=== PATIENT | female | born 1940 | race Caucasian/White ===

== ENCOUNTER 2017-06-18 05:34 | Observation (INO) | payer BC, MEDICARE ==
[2017-06-18] MEDS ORDERED: Nitroglycerin 2% Ointment 1 INCH/1 GM Packet ONE (07:16)
[2017-06-18 07:46] LABS: #Basophils 0.1 thou/uL (0.0-0.2); #Eosinphils 0.2 thou/uL (0.0-0.7); #Lymphocytes 1.3 thou/uL (1.20-3.40); #Neutrophils 6.8 thou/uL (1.40-6.50); %Basophils 0.8 % (0.0-1.0); %Eosinophils 1.9 % (0.0-10.0); %Lymphocytes 13.8 % (21.0-51.0); %Monocytes 10.4 % (0.0-10.0); %Neutrophils 73.2 % (42.0-75.0); Hemoglobin 12.6 g/dL (12.0-16.0); Mean Corpuscular HGB CONC 32.5 g/dL (32.0-36.0); Mean Corpuscular Hemoglobin 31.2 pg (27.0-31.0); Mean Corpuscular Volume 95.8 fl (81.0-99.0); Mean Platelet Volume 6.8 fL (7.4-10.4); Platelet Count 346 thou/uL (130-400); RBC Distribution Width 12.3 % (11.5-14.5); Red Blood Cell (RBC) Count 4.03 mill/uL (4.20-5.40); White Blood Cell (WBC) Count 9.2 thou/uL (4.8-10.8)
--- NOTE | 2017-06-18 07:49 | RAD ---
UPRIGHT PORTABLE CHEST 1 VIEW: Date: 06/18/17 HISTORY: 77-year-old female with cough. FINDINGS: Monitor leads overlie the chest. Bilateral pleural effusions, greater on the right side. Cardiomegaly . Bilateral vascular congestion. Findings certainly could be consistent with some degree of congestiv e heart failure. IMPRESSION: Bilateral vascular congestion with bilateral pleural effusions, greater on the right side, and cardio megaly, evidence for congestive heart failure. Treatment and short-term follow-up suggested. POS: LENNIE
[2017-06-18 08:07] LABS: ALT (SGPT) 27 U/L (8-55); AST (SGOT) 33 U/L (5-34); Albumin 3.9 g/dL (3.4-4.8); Alkaline Phosphatase 102 U/L (40-150); Anion Gap 13 mmol/L (10-20); BUN (Urea Nitrogen) 18 mg/dL (9.8-20.1); Bilirubin, Total 1.2 mg/dL (0.2-1.2); CK (CPK) 109 U/L (29-168); Calc. Creatinine Clearance 0 mL/min (70-130); Calcium 9.5 mg/dL (7.8-10.44); Carbon Dioxide 24 mmol/L (23-31); Chloride 108 mmol/L (98-107); Estimated GFR-MDRD 64; Globulin 2.7 g/dL (2.4-3.5); Glucose 92 mg/dL (83-110); Potassium 4.2 mmol/L (3.5-5.1); Protein, Total 6.6 g/dL (6.0-8.3); Sodium 141 mmol/L (136-145)
[2017-06-18 08:11] LABS: CKMB 5.8 ng/mL (0-6.6); Troponin I 0.022 ng/mL (< 0.028)
--- NOTE | 2017-06-18 09:14 | CT ---
CHEST CT ANGIOGRAM AND ABDOMEN CT ANGIOGRAM WITH 3D RENDERING: Date: 06/18/17 HISTORY: 77-year-old female with dyspnea, upper back pain for several weeks, with cough, congestion, and sore throat. FINDINGS: Bilateral pleural effusions, small to moderate, greater on the right side, with some patchy pleural b ased parenchymal changes in the right middle lobe, right lower lobe, and left lower lobe, most eviden ce for subsegmental atelectasis versus some chronic change. There is cardiomegaly. There are some ath erosclerotic ectatic changes of the aorta, but no evidence for focal aneurysm or dissection. No CT ev idence for significant acute pulmonary embolism. There is a moderate sized hiatal hernia. There appea r to be some focal fatty changes in the liver adjacent to the ligamentum teres. Collapsed T7 vertebra l body which has more of an old appearance. IMPRESSION: Some generalized atherosclerotic ectatic changes of the aorta without evidence for focal aneurysm or dissection. No significant CT evidence for acute pulmonary embolism. Bilateral pleural effusions and bilateral pleural based parenchymal changes. Moderate size hiatal hernia. Other findings as above. POS: LENNIE
[2017-06-18 11:11] LABS: Troponin I 0.024 ng/mL (< 0.028)
--- NOTE | 2017-06-18 11:43 | HP ---
PRIMARY CARE PHYSICIAN: Avery Greer M.D. REASON FOR ADMISSION: Hypertensive urgency, new onset congestive heart failure. HISTORY OF PRESENT ILLNESS: A 77-year-old female who came to emergency room with multiple complaints . She reports that about 3 weeks ago when she suddenly changed her position on the right side, she w as having upper back pain and which is going on for the last 2-3 weeks and that pain is getting worse whenever she changed positions and whenever she bends downward. Her intensity of pain is about 3/10 . She was trying some [id number] pain medication without any significant relief. For the last 1 week, the patient was experiencing upper respiratory infection including cough, nasal congestion, sore throat. For the last 2 weeks, she has dyspnea on exertion and she gets more fatigued. For the last 1 week, she noticed increasing bilateral lower extremity swelling. For the last 3 days, she was experiencing puffiness of eyelid as well as abdominal bloating. She was also feeling swelling over her hand. She denies any chest pain. She denies any palpitation, dizziness, or syncope. She denies any orthopnea or PND. She denies any fever or chills. She denies any hemoptysis. She denies any s putum production. She denies any constipation, diarrhea, melena, or hematochezia. With these symptoms, she presented to emergency room. She was initially hypertensive with blood pres sure 202/91. Routine blood tests showed elevated BNP. Her D-dimer was elevated and that is why CT d issection protocol was done which was negative for PE or dissection, but it did show findings suggest shandra of congestive heart failure. In the emergency room, patient was given aspirin, nitropatch. After that, her blood pressure improve d. We are admitting this patient for further evaluation and treatment. PAST MEDICAL HISTORY: Hypertension. PAST SURGICAL HISTORY: Tonsillectomy, hysterectomy. PAST PSYCHIATRIC HISTORY: Reviewed and negative. SOCIAL HISTORY: Patient is and lives at home with family. No history of tobacco, alcohol, o r illicit drug abuse. FAMILY HISTORY: No strong family history of premature coronary artery disease, stroke, or cancer. N o family history of congestive heart failure. ALLERGIES: SULFA DRUGS. CURRENT HOME MEDICATIONS: Altace 10 mg p.o. daily, vitamin B12 one tablet p.o. daily. REVIEW OF SYSTEMS: The following complete review of systems was negative, unless otherwise mentioned in the HPI or below: Constitutional: Weight loss or gain, ability to conduct usual activities. Skin: Rash, itching. Eyes: Double vision, pain. ENT/Mouth: Nose bleeding, neck stiffness, pain, tenderness. Cardiovascular: Palpitations, dyspnea on exertion, orthopnea. Respiratory: Shortness of breath, wheezing, cough, hemoptysis, fever or night sweats. Gastrointestinal: Poor appetite, abdominal pain, heartburn, nausea, vomiting, constipation, or diarr hea. Genitourinary: Urgency, frequency, dysuria, nocturia. Musculoskeletal: Pain, swelling. Neurologic/Psychiatric: Anxiety, depression. Allergy/Immunologic: Skin rash, bleeding tendency. Please see my HPI for pertinent positives and negatives. All other review of systems reviewed and ne gative except as mentioned in the HPI. EMERGENCY ROOM COURSE: The patient is given aspirin and nitropatch. PHYSICAL EXAMINATION: VITAL SIGNS: Currently, blood pressure 185/82, pulse 91, respiratory rate 22, temperature 98.6, satu ration 92% on room air, weight 72.03 kg. GENERAL: Patient is currently alert, awake. No obvious acute distress. HEAD: Normocephalic and atraumatic. EYES: Pupils are round and reactive to light. Extraocular muscles are intact. ENT: Oropharynx within normal limits. No pharyngeal erythema, no exudate. Nasal congestion noted. NECK: Supple. No JVD, no thyromegaly, no carotid bruit, no jugular venous distention. LUNGS: Bibasilar reduced air entry, few rales noted. No wheezing, no rhonchi. No accessory muscles of respiration use. CARDIAC: S1 and S2 regular. Soft systolic murmur noted. No gallop, no rub. ABDOMEN: Soft. Bowel sounds present. Nontender, nondistended. No organomegaly, no mass, no suprap ubic tenderness. BACK: Local examination of upper back and lower back is within normal limits. No point tenderness. EXTREMITIES: Upper extremity; passive movement of all joints are normal. Good pulsation. Lower ext remity: bilateral lower extremity pitting edema noted. Good distal pulsation. SKIN: No skin rash. HEMATOLOGICAL: No lymphadenopathy. PSYCHIATRIC: Normal affect. NEUROLOGIC: Nonfocal examination. The patient moves all 4 limbs. Plantar bilateral flexor. SIGNIFICANT LABS: EKG based on my review; incomplete right bundle branch block pattern, left atrial enlargement, nonspecific ST-T changes. Chest x-ray based on my review; bilateral pulmonary vascular congestion with bilateral pleural effusion, more on the right side, cardiomegaly. CT dissection prot ocol negative for any dissection or aneurysm or PE. Hiatal hernia noted. Chronic T7 compression fra cture noted. CBC: WBC 9.2, hemoglobin 12.6, platelets 346, D-dimer 4.80. BMP: Sodium 141, potassium 4.2, chlori de 108, carbon dioxide 24, anion gap 13, BUN 18, creatinine 0.86, glucose 92, calcium 9.5. LFT: AST 33, ALT 27, alkaline phosphatase 102, albumin 3.9, CK 109, CK-MB 5.8, troponin 0.022. BNP 666.9. ASSESSMENT AND PLAN: 1. New onset congestive heart failure. This patient has dyspnea on exertion, bilateral lower extrem ity pitting edema, elevated BNP, cardiomegaly, and bilateral pleural effusion with pulmonary vascular congestion and dyspnea on exertion as well as elevated BNP, all supportive of congestive heart failu re, most likely this is new onset given lack of previous history. I am suspecting diastolic heart fa ilure from uncontrolled hypertension. At this point, we will obtain echocardiography to look for sys tolic or diastolic dysfunction. If the patient has systolic heart failure, then we will consider doi ng stress test or ischemic evaluation. If this patient has diastolic heart failure, then we will leonardo at underlying problem. We will add beta douglas therapy. We will also treat with Lasix 40 mg IV b.i .d. today and tomorrow. Upon discharge, we will give her p.o. Lasix therapy. Fluid restriction 150 0 mL per day. Dietary education given. We will also rule out cardiac etiology with serial cardiac e nzymes. We will continue the nitropatch q.8 hourly. 2. Hypertension with hypertensive urgency, currently resolved after nitropatch which we will continu e and we will continue to treat with Altace 10 mg daily. We will add Coreg 12.5 mg twice daily and w e will also consider adding Lasix 40 mg IV b.i.d. and we will titrate blood pressure medication as to lerated. 3. Hiatal hernia. Patient will need Pepcid 20 mg twice daily. Nonpharmacological measure for hiata l hernia discussed with the patient. 4. Upper back pain, likely related with T7 compression fracture and muscle spasm. We will add Flexe ril 10 mg t.i.d. p.r.n. and we will use [place]/Tylenol #3 as needed basis for pain control. 5. Elevated D-dimer, but the CT dissection protocol negative for pulmonary embolism. 6. Deep venous thrombosis prophylaxis not needed because we are expecting discharge in 24 hours. 7. Gastrointestinal prophylaxis, Pepcid 20 mg p.o. b.i.d. 8. Code status: The patient is FULL CODE. The patient's daughter is surrogate decision maker. Disposition and plan based on clinical course. We are expecting patient's stay in hospital 24-48 carlton rs. Plan of care discussed with the patient and family member at bedside in the emergency room.
[2017-06-18] MEDS ORDERED: Diabetic Tussin 200 MG/10 ML UDCUP PO PRN (12:01)
[2017-06-18] MEDS ORDERED: Chloraseptic Spray 180 ml Bottle PO PRN (12:01)
[2017-06-18] MEDS ORDERED: Acetaminophen 325 MG TAB PO PRN (12:01)
[2017-06-18] MEDS ORDERED: Sodium Chloride 0.65% Nasal 44 ML BOT EA NARE PRN (12:01)
[2017-06-18] MEDS ORDERED: Ondansetron ODT 4 MG TAB PO PRN (12:01)
[2017-06-18] MEDS ORDERED: Senokot 8.6 MG TAB PO PRN (12:01)
[2017-06-18] MEDS ORDERED: Nitroglycerin 0.4 MG TAB (25 Tab Bottle) SL PRN (12:01)
[2017-06-18] MEDS ORDERED: Loratadine 10 MG TAB PO PRN (12:01)
[2017-06-18] MEDS ORDERED: hydrALAZINE 20 MG/ML VIAL SLOW IVP PRN (12:01)
[2017-06-18] MEDS ORDERED: Artificial Tears 18 DROP/0.9 ML EA EYE PRN (12:01)
[2017-06-18] MEDS ORDERED: Mag-Al 1200 mg/1200 mg/30 ML UDCUP PO PRN (12:01)
[2017-06-18] MEDS ORDERED: Ondansetron HCl/PF 4 MG/2 ML Vial IVP PRN (12:01)
[2017-06-18] MEDS ORDERED: Eucerin (Mineral Oil/Petrolatum,White) 30 gm Jar TOP PRN (12:01)
[2017-06-18] MEDS ORDERED: HYDROcodone/Acetaminophen 5/325 mg Tablet PO PRN (12:01)
[2017-06-18] MEDS ORDERED: Milk Of Magnesia 30 ML UDCUP PO PRN (12:01)
[2017-06-18] MEDS ORDERED: Zolpidem Tartrate 5 MG TAB PO PRN (12:01)
[2017-06-18] MEDS ORDERED: Loperamide HCl 2 MG CAP PO PRN (12:01)
[2017-06-18] MEDS ORDERED: ISOVUE-370 76%-LOCM 1 ML ONE (12:24)
[2017-06-18 12:25] VITALS: BMI 27.9
[2017-06-18 12:45] LABS: Bilirubin Negative (Negative); Blood, Urine Negative (Negative); Clarity CLEAR (Clear); Glucose, Urine (Dipstick) Negative (Negative); Leukocyte Negative (Negative); Nitrite Negative (Negative); Protein, Urine (Dipstick) Negative (Neg-Trace); Specific Gravity, Urine 1.041 (1.002-1.036); Urobilinogen 0.2 mg/dL (0.2-1.0); pH, Urine 6.5 (5.0-9.0)
[2017-06-18 12:46] LABS: Bacteria/HPF None Seen HPF (None Seen); Hyaline Casts/LPF 0-3 HYALINE CAST LPF (0-3 Hyaline); Pathc Cast-AUWi Flag 0.54 (0-2.49); RBC/HPF 0-3 HPF (0-3); Squamous Epithelial 0-3 HPF (0-3); WBC/HPF None Seen HPF (0-3)
[2017-06-18] MEDS: Furosemide 40 MG/4 ML VIAL SLOW IVP SCH (13:28)
[2017-06-18] MEDS: Famotidine 20 MG TAB PO SCH (20:09)
[2017-06-18] MEDS: Carvedilol 6.25 MG TAB PO SCH (20:09)
[2017-06-19 04:38] LABS: #Basophils 0.1 thou/uL (0.0-0.2); #Eosinphils 0.2 thou/uL (0.0-0.7); #Lymphocytes 1.4 thou/uL (1.20-3.40); #Monocytes 0.8 thou/uL (0.11-0.59); #Neutrophils 5.5 thou/uL (1.40-6.50); %Basophils 0.7 % (0.0-1.0); %Eosinophils 2.8 % (0.0-10.0); %Lymphocytes 17.7 % (21.0-51.0); %Monocytes 10.1 % (0.0-10.0); %Neutrophils 68.7 % (42.0-75.0); Hemoglobin 10.6 g/dL (12.0-16.0); Mean Corpuscular HGB CONC 34.3 g/dL (32.0-36.0); Mean Corpuscular Hemoglobin 32.8 pg (27.0-31.0); Mean Corpuscular Volume 95.7 fl (81.0-99.0); Mean Platelet Volume 6.9 fL (7.4-10.4); Platelet Count 265 thou/uL (130-400); RBC Distribution Width 12.1 % (11.5-14.5); Red Blood Cell (RBC) Count 3.23 mill/uL (4.20-5.40); White Blood Cell (WBC) Count 8.1 thou/uL (4.8-10.8)
[2017-06-19 04:45] LABS: Anion Gap 11 mmol/L (10-20); BUN (Urea Nitrogen) 19 mg/dL (9.8-20.1); Calc. Creatinine Clearance 60 mL/min (70-130); Calcium 8.5 mg/dL (7.8-10.44); Carbon Dioxide 27 mmol/L (23-31); Cardiac Risk 2.6 (Less than 4.5); Chloride 108 mmol/L (98-107); Cholesterol 129 mg/dl (< 200 Desired); Estimated GFR-MDRD 66; Glucose 89 mg/dL (83-110); HDL Cholesterol 49 mg/dL (>60 Neg Risk); LDL Cholesterol, Calculated 70 mg/dL; Potassium 3.7 mmol/L (3.5-5.1); Sodium 142 mmol/L (136-145); Triglycerides 49 mg/dL (Less than 150); Uric Acid 6.7 mg/dL (2.6-6.0)
[2017-06-19] MEDS: Furosemide 40 MG/4 ML VIAL SLOW IVP SCH (06:33)
[2017-06-19] MEDS: Famotidine 20 MG TAB PO SCH (08:43)
[2017-06-19] MEDS: Carvedilol 6.25 MG TAB PO SCH (08:43)
[2017-06-19] MEDS ORDERED: Aspirin 325 MG TAB PO SCH (09:00)
[2017-06-19] MEDS ORDERED: Ramipril 5 MG CAP PO SCH (09:00)
[2017-06-19] MEDS ORDERED: Communication Order-Pharmacy FS SCH (09:15)
--- NOTE | 2017-06-19 09:58 | DIS ---
DATE OF ADMISSION: 06/19/2017 DATE OF DISCHARGE: PENDING. PRIMARY CARE PHYSICIAN: Avery Greer M.D. DISCHARGE DISPOSITION: Home. PRIMARY DISCHARGE DIAGNOSES: 1. New onset acute diastolic congestive heart failure. 2. Hypertensive urgency, corrected. SECONDARY DISCHARGE DIAGNOSES: Upper back pain from T7 compression fracture, hypertension, hiatal he rnia. PRIMARY PROCEDURE/OPERATION: None. RADIOLOGICAL INVESTIGATION: CT dissection was negative for any dissection or pulmonary embolism. Ch est x-ray showed pulmonary vascular congestion and pleural effusion. SIGNIFICANT LABORATORY DATA: WBC 8.1, hemoglobin 10.6, platelets 265. D-dimer 4.80, sodium 142, pot assium 3.7, BUN 19, creatinine 0.83, calcium 8.5. Cardiac enzymes negative x3. BNP 666.9, triglycer ides 49, cholesterol 129, LDL 70, HDL 49, TSH 0.56. Urinalysis normal. DISCHARGE MEDICATIONS: Coreg 6.25 mg p.o. b.i.d., aspirin 81 mg p.o. daily, Pepcid 20 mg p.o. b.i.d. , Lasix 40 mg p.o. daily, Altace 10 mg p.o. daily. CONTRAINDICATIONS: None. CODE STATUS: FULL CODE. INPATIENT TRUCKER HAND: Cardiology consulted while in hospital. TEST RESULTS PENDING ON DISCHARGE: Echocardiography. ALLERGIES: SULFA drugs. DISCHARGE PLAN: Post hospital, patient will follow with primary care physician and Cardiology. HOSPITAL COURSE: A 77-year-old female who was admitted by me yesterday. Please see my HPI for furth er details. This patient was having upper back pain and she was also having high blood pressure. Fo r last week, the patient had increasing lower extremity edema, increasing shortness of breath, abdomi nal wall edema and puffiness of eyelid. During this admission, she had CT dissection because of high D-dimer, which was negative for PE and dissection, but it showed bilateral pleural effusion and pulm onary vascular congestion. Her BNP was elevated. Clinically, this patient was diagnosed with conges tive heart failure. We are suspecting diastolic heart failure. We are doing echocardiography, offic ial report is pending. Family member requested Cardiology consultation and we are doing that today. Patient did not have any angina and her troponins remained negative. We added Lasix, Coreg, on top of her home medication. Dietary education and fluid restriction discus sed with the patient and family member. Please see my progress note from today for further details. If Cardiology okay, then we will conside r discharging her home later on today with the above mentioned medications and outpatient followup [facility] Cardiology and primary care physician.
--- NOTE | 2017-06-19 10:11 | PDOC.PN ---
- Subjective Encounter Start Date: 06/19/17 Encounter Start Time: 07:30 -: old records requested/rev Patient seen and examined. No new complaints. No overnight events less edema and less dyspnea, doing better - Objective Resuscitation Status: Resuscitation Status FULL:Full Resuscitation MAR Reviewed: Yes Vital Signs & Weight: Vital Signs (12 hours) Temp Pulse Resp BP Pulse Ox 06/19/17 09:37 79 138/64 06/19/17 08:30 97.8 F 81 18 175/85 H 96 06/19/17 08:00 97.8 F 81 18 06/19/17 04:05 98.5 F 83 18 137/65 92 L 06/18/17 23:25 98 F 86 16 135/60 95 Weight Weight 151 lb 9.6 oz I&O: 06/18/17 06/19/17 06/20/17 06:59 06:59 06:59 Intake Total 840 Output Total 2300 Balance -1460 Result Diagrams: 06/19/17 04:03 06/19/17 04:03 EKG Reviewed by me: Yes (nsr) Phys Exam - Physical Examination Constitutional: NAD HEENT: PERRLA, moist MMs, sclera anicteric Neck: no JVD, supple Respiratory: no wheezing, no rales, no rhonchi Cardiovascular: RRR, no significant murmur, no rub Gastrointestinal: soft, non-tender, no distention, positive bowel sounds Musculoskeletal: no edema, pulses present Neurological: non-focal, normal sensation, moves all 4 limbs Psychiatric: normal affect, A&O x 3 Skin: no rash, normal turgor Dx/Plan (1) Acute diastolic (congestive) heart failure Code(s): I50.31 - ACUTE DIASTOLIC (CONGESTIVE) HEART FAILURE Status: Acute (2) Hiatal hernia Code(s): K44.9 - DIAPHRAGMATIC HERNIA WITHOUT OBSTRUCTION OR GANGRENE Status: Chronic (3) Hypertension Code(s): I10 - ESSENTIAL (PRIMARY) HYPERTENSION Status: Chronic (4) Upper back pain Code(s): M54.9 - DORSALGIA, UNSPECIFIED Status: Chronic (5) Hypertensive urgency Code(s): I16.0 - HYPERTENSIVE URGENCY Status: Resolved - Plan cont current plan of care, plan discussed w/ family * add altace today * continue coreg * continue lasix * today echo * cardiology consult per family request * medication reviewed as below * symptomatic treatment * possible discharge later today based on cardio. Review of Systems - Review of Systems ENT: negative: Ear Pain, Ear Discharge, Nose Pain, Nose Discharge, Nose Congestion, Mouth Pain, Mouth Swelling, Throat Pain, Throat Swelling, Other Respiratory: negative: Cough, Dry, Shortness of Breath, Hemoptysis, SOB with Excertion, Pleuritic Pain, Sputum, Wheezing Cardiovascular: negative: chest pain, palpitations, orthopnea, paroxysmal nocturnal dyspnea, edema, light headedness, other Gastrointestinal: negative: Nausea, Vomiting, Abdominal Pain, Diarrhea, Constipation, Melena, Hematochezia, Other Genitourinary: negative: Dysuria, Frequency, Incontinence, Hematuria, Retention , Other Musculoskeletal: negative: Neck Pain, Shoulder Pain, Arm Pain, Back Pain, Hand Pain, Leg Pain, Foot Pain, Other Skin: negative: Rash, Lesions, Trent, Bruising, Other - Medications/Allergies Allergies/Adverse Reactions: Allergies Allergy/AdvReac Type Severity Reaction Status Date / Time Sulfa (Sulfonamide Allergy Verified 06/18/17 12:05 Antibiotics) Medications: Current Medications Acetaminophen (Tylenol) 650 mg PO Q4H PRN PRN Reason: Headache/Fever or Pain Hydrocodone Bitart/Acetaminophen ([place] 5/325) 1 tab PO Q4H PRN PRN Reason: Moderate Pain (4-6) Al Hydroxide/Mg Hydroxide (Maalox) 30 ml PO Q6H PRN PRN Reason: Heartburn or Indigestion Artificial Tears (Tears Naturale) 0 drop EA EYE PRN PRN PRN Reason: Dry Eyes Aspirin (Aspirin) 325 mg PO DAILY [facility] Last Admin: 06/19/17 08:43 Dose: 325 mg Carvedilol (Coreg) 6.25 mg PO BID [facility] Last Admin: 06/19/17 08:43 Dose: 6.25 mg Famotidine (Pepcid) 20 mg PO BID [facility] Last Admin: 06/19/17 08:43 Dose: 20 mg Furosemide (Lasix) 40 mg SLOW IVP 0600,1400 [facility] Last Admin: 06/19/17 06:33 Dose: 40 mg Guaifenesin (Robitussin Sf) 200 mg PO Q4H PRN PRN Reason: Cough Hydralazine HCl (Apresoline) 10 mg SLOW IVP Q4H PRN PRN Reason: Systolic BP > 180 Loperamide HCl (Imodium) 2 mg PO PRN PRN PRN Reason: Diarrhea/Loose Stools Loratadine (Claritin) 10 mg PO DAILYPRN PRN PRN Reason: Sinus Symptoms Magnesium Hydroxide (Milk Of Magnesium) 30 ml PO DAILYPRN PRN PRN Reason: Constipation Mineral Oil/White Petrolatum (Eucerin Cream) 0 gm TOP BIDPRN PRN PRN Reason: Dry Skin Miscellaneous Information (Communication Order-Pharmacy) 0 each FS ONE [facility] Stop: 06/19/17 23:59 Nitroglycerin (Nitrostat) 0.4 mg SL Q5MIN PRN PRN Reason: Chest Pain Ondansetron HCl (Zofran Odt) 4 mg PO Q6H PRN PRN Reason: Nausea/Vomiting Ondansetron HCl (Zofran) 4 mg IVP Q6H PRN PRN Reason: Nausea/Vomiting Phenol (Chloraseptic [place] 180 Ml Bot) 0 ml PO PRN PRN PRN Reason: Sore Throat Ramipril (Altace) 10 mg PO DAILY [facility] Last Admin: 06/19/17 08:43 Dose: 10 mg Senna (Senokot) 2 tab PO HSPRN PRN PRN Reason: Constipation Sodium Chloride ([place] Nasal [place] 0.65%) 0 ml EA NARE QIDPRN PRN PRN Reason: Nasal Congestion Zolpidem Tartrate (Ambien) 5 mg PO HSPRN PRN PRN Reason: Insomnia
[2017-06-19 12:01] VITALS: TEMP 97.6
[2017-06-19 13:00] VITALS: BP 194/89
--- NOTE | 2017-06-19 13:02 | CON ---
DATE OF CONSULTATION: 06/18/2017 REASON FOR CONSULTATION: Shortness of breath and elevated BNP. REFERRING PROVIDER: Dr. Saravia. SUBJECTIVE: Jonathon is a very pleasant 77-year-old woman who recently presented with shortness of chidi ath. She also had hypertensive urgency. Blood pressure was 202/91. No chest pain or pressure noted . No palpitations, heart fluttering, or other associated symptoms. CT scan of the chest was negativ e for PE. PAST MEDICAL HISTORY: Hypertension and murmur of unknown etiology. PAST SURGICAL HISTORY: Tonsillectomy and hysterectomy. SOCIAL HISTORY: No current tobacco or alcohol use. FAMILY HISTORY: Negative for CAD. HOME MEDICATIONS: Include Altace and vitamin B12. REVIEW OF SYSTEMS: Ten-point review of systems is reviewed and as above, otherwise negative. PHYSICAL EXAMINATION: GENERAL: Patient is a pleasant female who is in no acute distress. The patient appears her stated a ge. VITAL SIGNS: Blood pressure 142/71, pulse 75, temperature 97.6. NEUROLOGIC: The patient is alert and oriented times 3 with no focal neurologic deficits. HEENT: Sclerae without icterus. Mouth has moist mucous membranes with normal pallor. NECK: No JVD. Carotid upstroke brisk. No bruits bilaterally. LUNGS: Clear to auscultation with unlabored respirations. BACK: No scoliosis or kyphosis. CARDIAC: Regular rate and rhythm with 2/6 systolic ejection murmur heard best in the lower left ster nal border. ABDOMEN: Soft, nontender, nondistended. No peritoneal signs present. No hepatosplenomegaly. No abnormal striae. EXTREMITIES: 2+ femoral and 2+ dorsalis pedis pulses. No cyanosis, clubbing, or edema. SKIN: No gross abnormalities. PERTINENT LABORATORY DATA: Hemoglobin 10.6, white blood cell count 8.1. Creatinine 0.83, BNP of 666 , and peak troponin 0.024. IMPRESSION: 1. Shortness of breath. 2. Elevated BNP. 3. Hypertension. RECOMMENDATIONS: 1. Symptoms are likely related to hypertensive heart disease. This may also be a component of diast olic dysfunction. She does have a murmur, but has had a murmur for years. Murmur consistent with mi tral regurgitation. 2. Recommend echo with Doppler. We would also recommend Lasix and strict blood pressure management. Agree with carvedilol. Would decrease aspirin to 81 q.a.m. Would also continue ramipril. I have counseled her on salt and fluid restriction. If echo appears to be within normal limits, would be ok ay from my standpoint to discharge home tomorrow with further outpatient workup.
== END 2017-06-19 15:30 | disposition home or self-care (01) ==
LOC: ERS 05:34 → 2SW 11:50
PROVIDERS: ADMIT Internal Medicine; ATTEND Internal Medicine
DX: I11.0 Hypertensive heart disease with heart failure (principal); I50.31 Acute diastolic (congestive) heart failure; I16.0 Hypertensive urgency; S22.069A Unspecified fracture of T7-T8 vertebra, initial encounter for closed fracture; K44.9 Diaphragmatic hernia without obstruction or gangrene; Z88.2 Allergy status to sulfonamides; Z79.899 Other long term (current) drug therapy; Z90.89 Acquired absence of other organs; Z90.710 Acquired absence of both cervix and uterus
CPT/HCPCS: 71045; 71275; 80048; 80053; 80061; 81001; 82550; 82553; 83880; 84443; 84484 ×2; 84550; 85025 ×2; 85379; 93005; 93306; 93798 ×2; 94760; 96374; 96376; 99285; G0378; 36415; J1940

== ENCOUNTER 2017-11-06 23:39 | Emergency (ER) | payer MEDICARE, BC ==
[2017-11-07] MEDS ORDERED: Lidocaine 1% w/Epinephrine 1:100K 20 ML VIAL ONE (00:17)
[2017-11-07] MEDS ORDERED: Adacel (T-DAP) 0.5 ML VIAL ONE (01:01)
--- NOTE | 2017-11-07 07:43 | CT ---
PRELIMINARY REPORT/[facility]/EMERGENCY AFTER HOURS PROCEDURE: EXAM: CT Head Without Intravenous Contrast EXAM DATE/TIME: 11/07/2017 12:31 AM CLINICAL HISTORY: 77 years old, female; Injury or trauma; Fall; Initial encounter; Abrasion; Face; Patient HX: Er rme-a ; 77 yo f presents to ed S/P fall. 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 PT fel l face first and suffered 5mm laceration to upper bridge of nose. PT denies loc, denies headache, den ies weakness, denies AMS. Son reports PT has been acting ormal. TECHNIQUE: Axial computed tomography images of the head/brain without intravenous contrast. COMPARISON: No relevant prior studies available. FINDINGS: Brain: Mild prominence to the right cerebellopontine angle No hemorrhage. Mild white matter disease. No edema. Ventricles: Normal. No ventriculomegaly. Bones/joints: Mild scalloping of the right temporal/sphenoid bones. Nasal bone/nasal septal fractures noted Sinuses: Normal as visualized. No acute sinusitis. Mastoid air cells: Normal as visualized. No mastoid effusion. Soft tissues: Normal. 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 Comparison with prior images would helpful Otherwise, no definite acute intracranial hemorrhage Thank you for allowing us to participate in the care of your patient. Dictated and Authenticated by: Santos Elizondo MD 11/07/2017 12:44 AM Central Time ([place] & [place]) FINAL REPORT HEAD CT WITHOUT CONTRAST: 11/07/17. COMPARISON: None. HISTORY: Fall, trauma, pain. FINDINGS: I agree with the preliminary [facility] report dictated by Dr. Santos Goel. Mildly displaced nasal bone fractures noted. Questionable nasal septal fracture noted. Paranasal si nuses and mastoid air cells well aerated. No intracranial hemorrhage or ventriculomegaly. There is an area of CSF attenuation on the right and fairly adjacent to the brainstem which may repre sent a right CP angle arachnoid cyst. No comparison imaging is available. IMPRESSION: Nasal bone fractures. Question right CP angle arachnoid cyst, which could be better assessed via fol lowup nonemergent MRI. No intracranial hemorrhage. POS: [facility]
== END 2017-11-07 01:21 | disposition home or self-care (01) ==
LOC: ERS 23:39
DX: S02.2XXA Fracture of nasal bones, initial encounter for closed fracture (principal); I10 Essential (primary) hypertension; Z79.899 Other long term (current) drug therapy; Z23 Encounter for immunization; W01.198A Fall on same level from slipping, tripping and stumbling with subsequent striking against other object, initial encounter; Y92.481 Parking lot as the place of occurrence of the external cause
CPT/HCPCS: 12011; 70450; 90471; 90715; J2001

== ENCOUNTER 2017-11-16 01:11 | Emergency (ER) | payer MEDICARE, BC | END 2017-11-16 02:37 | disposition home or self-care (01) | LOC: ERS 01:11 | DX: S01.81XD Laceration without foreign body of other part of head, subsequent encounter (principal); I10 Essential (primary) hypertension; Z79.899 Other long term (current) drug therapy ==

== ENCOUNTER 2018-06-03 20:46 | Emergency (ER) | payer MEDICARE, BC ==
[2018-06-03 22:27] LABS: #Basophils 0.1 thou/uL (0.0-0.2); #Eosinphils 0.2 thou/uL (0.0-0.7); #Lymphocytes 2.1 thou/uL (1.20-3.40); #Monocytes 0.9 thou/uL (0.11-0.59); #Neutrophils 4.4 thou/uL (1.40-6.50); %Basophils 0.8 % (0.0-1.0); %Eosinophils 2.4 % (0.0-10.0); %Monocytes 11.5 % (0.0-10.0); %Neutrophils 58.3 % (42.0-75.0); Hemoglobin 10.5 g/dL (12.0-16.0); Mean Corpuscular HGB CONC 32.6 g/dL (32.0-36.0); Mean Corpuscular Hemoglobin 31.5 pg (27.0-31.0); Mean Corpuscular Volume 96.4 fL (78.0-98.0); Mean Platelet Volume 7.5 fL (7.4-10.4); Platelet Count 288 thou/uL (130-400); RBC Distribution Width 12.1 % (11.5-14.5); Red Blood Cell (RBC) Count 3.32 mill/uL (4.20-5.40); White Blood Cell (WBC) Count 7.6 thou/uL (4.8-10.8)
[2018-06-03 22:48] LABS: ALT (SGPT) 12 U/L (8-55); AST (SGOT) 16 U/L (5-34); Albumin 3.8 g/dL (3.4-4.8); Alkaline Phosphatase 94 U/L (40-150); Anion Gap 14 mmol/L (10-20); BUN (Urea Nitrogen) 33 mg/dL (9.8-20.1); Bilirubin, Total 0.6 mg/dL (0.2-1.2); Calc. Creatinine Clearance 0 mL/min (70-130); Calcium 8.7 mg/dL (7.8-10.44); Carbon Dioxide 25 mmol/L (23-31); Chloride 107 mmol/L (98-107); Estimated GFR-MDRD 42; Globulin 2.6 g/dL (2.4-3.5); Glucose 80 mg/dL (83-110); Potassium 4.2 mmol/L (3.5-5.1); Protein, Total 6.4 g/dL (6.0-8.3); Sodium 142 mmol/L (136-145)
--- NOTE | 2018-06-03 23:13 | RAD ---
FOUR VIEWS LEFT KNEE 06/03/18 HISTORY: Pain in left knee when walking. FINDINGS: There is osteopenia. There is tricompartment osteophytosis. There is narrowing of the lateral joint c ompartment with subchondral sclerosis present. There does appear to be slight valgus angulation at th e knee joint. The lateral view is rotated limiting evaluation, but no obvious fracture is seen. There is no dislocation identified. There is a small joint effusion present. There is subtle curvilinear o sseous density seen overlying the suprapatellar region and a small intra-articular loose body cannot be entirely excluded. This measures 1.6 cm. IMPRESSION: 1. Osteopenia and osteoarthritis left knee with severe narrowing of the lateral joint compartmen t. 2. Calcific density which appears to overlie the suprapatellar location of the left knee and may represent an intra-articular loose body in this region. POS: E[facility]
--- NOTE | 2018-06-03 23:36 | ULT ---
LEFT LOWER EXTREMITY VENOUS ULTRASOUND WITH DOPPLER 06/03/18 HISTORY: Swelling, edema. COMPARISON: None. TECHNIQUE: Hong scale, color flow, doppler imaging with spectral waveform analysis performed of the left lower e xtremity venous system. FINDINGS: There is compressibility, presence of flow and augmentation of the common femoral vein, femoral vein, and popliteal vein. There is flow in the greater saphenous vein, profunda vein and posterior tibial vein. In the popliteal fossa, there is complex echotexture measuring 5.5 x 2.2 x 5.5 cm. Possibility of a complex Liriano's cyst cannot be excluded. Further evaluation with nonemergent MRI. IMPRESSION: 1. No evidence of thrombus in the left lower extremity deep venous system. 2. 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 Confirmation with MRI is recommended on a nonemergen t basis. POS: LENNIE
== END 2018-06-03 23:26 | disposition home or self-care (01) ==
LOC: ERS 20:46
DX: M71.22 Synovial cyst of popliteal space [Baker], left knee (principal); M17.12 Unilateral primary osteoarthritis, left knee; I10 Essential (primary) hypertension
CPT/HCPCS: 36415; 80053; 85025

== ENCOUNTER 2018-07-12 16:06 | Emergency (ER) | payer MEDICARE, BC | END 2018-07-12 17:30 | disposition home or self-care (01) | LOC: ERS 16:06 | DX: H61.21 Impacted cerumen, right ear (principal); H90.2 Conductive hearing loss, unspecified; I10 Essential (primary) hypertension | CPT/HCPCS: 69210 ==

== ENCOUNTER 2018-08-29 12:34 | Inpatient (IN) | payer MEDICARE, BC ==
[~2018-08-29 12:34] MED LIST: Dexamethasone 20 MG/5 ML VIAL ONE; Glycopyrrolate 0.2 MG/ML 5 ML SYRINGE ONE; Lidocaine 1% PF 5 ML VIAL ONE; Ondansetron PF 4 MG/2 ML Vial ONE; PHENYLEPHRINE-NS 100 MCG/ML 10 ML SYRINGE ONE; PROPOFOL 200 MG/20 ML VIAL ONE; Rocuronium Bromide 10 MG/ML (10ML VIAL) ONE
[2018-08-29 13:14] LABS: #Basophils 0.1 thou/uL (0.0-0.2); #Eosinphils 0.1 thou/uL (0.0-0.7); #Lymphocytes 1.6 thou/uL (1.20-3.40); #Monocytes 0.9 thou/uL (0.11-0.59); #Neutrophils 9.1 thou/uL (1.40-6.50); %Basophils 0.6 % (0.0-1.0); %Eosinophils 1.3 % (0.0-10.0); %Lymphocytes 13.2 % (21.0-51.0); %Monocytes 7.6 % (0.0-10.0); %Neutrophils 77.4 % (42.0-75.0); Hemoglobin 12.1 g/dL (12.0-16.0); Mean Corpuscular HGB CONC 32.4 g/dL (32.0-36.0); Mean Corpuscular Hemoglobin 30.5 pg (27.0-31.0); Mean Corpuscular Volume 94.3 fL (78.0-98.0); Mean Platelet Volume 7.2 fL (7.4-10.4); Platelet Count 251 thou/uL (130-400); RBC Distribution Width 12.4 % (11.5-14.5); Red Blood Cell (RBC) Count 3.98 mill/uL (4.20-5.40); White Blood Cell (WBC) Count 11.8 thou/uL (4.8-10.8)
[2018-08-29 13:21] LABS: PTT 29.5 SEC (22.9-36.1); Prothrombin Time 13.1 SEC (12.0-14.7)
[2018-08-29 13:26] LABS: ALT (SGPT) 12 U/L (8-55); AST (SGOT) 18 U/L (5-34); Albumin 4.2 g/dL (3.4-4.8); Alkaline Phosphatase 92 U/L (40-150); Anion Gap 15 mmol/L (10-20); BUN (Urea Nitrogen) 45 mg/dL (9.8-20.1); Calc. Creatinine Clearance 0 mL/min (70-130); Calcium 9.2 mg/dL (7.8-10.44); Carbon Dioxide 26 mmol/L (23-31); Chloride 105 mmol/L (98-107); Estimated GFR-MDRD 27; Globulin 2.5 g/dL (2.4-3.5); Glucose 109 mg/dL (83-110); Potassium 4.1 mmol/L (3.5-5.1); Protein, Total 6.7 g/dL (6.0-8.3); Sodium 142 mmol/L (136-145)
--- NOTE | 2018-08-29 13:28 | CT ---
CT BRAIN WITHOUT IV CONTRAST: HISTORY: Stroke COMPARISON: 11/07/2017 FINDINGS: No evidence of infarct, hemorrhage, or midline shift is seen. 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 The ventricular size is normal, and the basilar cisterns are pa tent. The bony calvarium is intact. The visualized paranasal sinuses and mastoid air cells are well aerated. IMPRESSION: Stable examination. No CT evidence of acute intracranial process. POS: OFF
--- NOTE | 2018-08-29 13:35 | RAD ---
FPortable supine frontal chest radiograph: 08/29/2018 COMPARISON: 06/18/2017 HISTORY: Hip pain, fall FINDINGS: Supine imaging limits assessment for pneumothorax and pleural fluid. There is atherosclerot ic calcification of the aortic arch. Moderate sized hiatal hernia present. No lobar consolidation or alveolar edema. IMPRESSION: No lobar consolidation or alveolar edema.
--- NOTE | 2018-08-29 13:36 | RAD ---
FExam: 2 views of the left hip HISTORY: left hip pain COMPARISON: None FINDINGS: 2 views of the left hip shows a left femoral neck fracture. No dislocation of femoral head is seen. No degenerative changes are seen. Moderate diffuse soft tissue swelling is present. IMPRESSION: Left femoral neck fracture
--- NOTE | 2018-08-29 13:40 | CT ---
NECK CTA: INTRACRANIAL CTA: 08/29/2018 HISTORY: Left leg weakness. TECHNIQUE: Contrast enhanced CTA performed of the carotid arteries and intracranial CTA, and 2D and 3D reconstru cted images were performed on an independent 3D work station. FINDINGS: NECK CTA: No definite evidence of lung parenchymal lesions seen. Calcifications seen in the coronary arteries. Calcification also seen in the aortic arch. The right brachiocephalic artery is patent. The right common carotid artery is patent. There is fransisca e mild atherosclerotic calcification in the origin of the right ICA, without evidence of significant stenosis. More distally, right ICA is patent. The left common carotid artery is patent. The left ICA is patent. Bilateral cavernous and some petrous ICA calcification is seen. This is mild and does not result in significant flow-limiting lesions. INTRACRANIAL CTA: The right and left MCA and BURTON vessels are patent without evidence of significant stenosis. The right and left vertebral arteries, as well as the basilar artery and posterior cerebral artery ar e patent. Findings called to Dr. Shah at 1:26 p.m. on 08/29/2018. CODE CR
[2018-08-29] MEDS ORDERED: ISOVUE-370 76%-LOCM 1 ML ONE (13:44)
--- NOTE | 2018-08-29 13:44 | RAD ---
FExam: Single view of the pelvis HISTORY: Left hip pain COMPARISON: None FINDINGS: A single view the pelvis shows a fracture of the left femoral neck. There is remodeling of the right inferior pubic ramus which may represent sequelae from a remote fracture. No degenerative c hanges seen in either hip. IMPRESSION: Left femoral neck fracture
[2018-08-29] MEDS ORDERED: Fentanyl 100 MCG/2 ML VIAL ONE (14:39)
[2018-08-29] MEDS ORDERED: Phenylephrine HCL 10 MG/ML VIAL ONE (14:54)
--- NOTE | 2018-08-29 16:42 | HP ---
REQUESTING PHYSICIAN: Dr. Valdes ATTENDING SURGEON: Dr. Lee. CONSULTATIONS: Orthopedics, Dr. Garza. HISTORY OF PRESENT ILLNESS: The patient is an 78-year-old woman, who was walking in her home when she missed a step and fell landing on her left side. The patient was brought to the emergency department by probably on vehicle, where she underwent evaluation and examination and was noted to have a left femoral neck fracture, which time we were asked to evaluate the patient for admission and obtain Orthopedic consultation. The patient had been n.p.o. since last night and after discussion with Orthopedics, it was decided that she would likely be able to go to the operating room today. The patient denied hitting her head or having any loss of consciousness. She also denied any weakness, dizziness, or syncopal type symptoms. ALLERGIES: SULFA. CURRENT MEDICATIONS: The patient does not have her medical list. Reports that she takes something for her blood pressure, diuretic, and daily aspirin. PAST MEDICAL HISTORY: Hypertension and "leaky heart valve." PAST SURGICAL HISTORY: Tonsillectomy, hysterectomy, fibroid tumor removal. SOCIAL HISTORY: The patient lives independently in [place]. She ambulates unassisted. She denies drug, tobacco, or alcohol use. REVIEW OF SYSTEMS: A 10-point review of systems is negative as otherwise stated. PHYSICAL EXAMINATION: VITAL SIGNS: Blood pressure 189/84, heart rate 71, respirations 20, oxygen saturation 97% on room air. GENERAL: The patient is resting comfortably in the ER bed. She is awake, alert, and oriented x3. Rosalie Coma Scale is 15. HEENT: Head is normocephalic and atraumatic. Eyes; extraocular motion intact. PERRLA bilaterally. Ears are atraumatic without discharge. Nose is atraumatic without discharge. Oropharynx is clear. NECK: Nontender. Trachea is midline. No JVD. CHEST: Clear to auscultation with good inspiratory and expiratory effort. HEART: Regular rate and rhythm. ABDOMEN: Soft, flat, nontender with active bowel sounds. PELVIS: Stable with tenderness to the left hip consistent with her fracture. EXTREMITIES: Neurovascularly intact x4. BACK: By report is atraumatic and nontender. LABORATORY FINDINGS: White blood cell count 11.8, hemoglobin 12.1, hematocrit 37.5, platelets 251. Sodium 142, potassium 4.1, chloride 105, CO2 of 26, BUN 45, creatinine 1.83, glucose 109. LFTs are unremarkable. Troponin is less than 0.010. INR 1.0. RADIOGRAPHIC FINDINGS: CT of the brain with and without contrast showed no evidence of acute intracranial process. AP chest x-ray shows no lobar consolidation or alveolar edema. AP pelvis shows a left femoral neck fracture. Views of the left hip again showed a left femoral neck fracture. ASSESSMENT: 1. Status post ground level fall. 2. Left femoral neck fracture. 3. Acute on chronic kidney injury. 4. History of hypertension. PLAN: Plan will be to keep the patient n.p.o. We will hydrate her, do pain control, and she will be able to undergo her surgical procedure today. Postoperatively, we will have Physical and Occupational therapy resume her home medications once her list is verified, pain control, and discuss placement with her and the family after she has been evaluated by Physical and Occupational Therapy. The evaluation, examination, laboratory, and radiographic findings were discussed with Dr. Lee prior to this dictation. The patient was evaluated in the emergency department by Dr. Garza, who plans on taking the patient to the operating room today. Job ID: [id number]
[2018-08-29] MEDS ORDERED: Morphine 4 MG/ML VIAL SLOW IVP PRN ×4 (17:16→23:00)
[2018-08-29] MEDS ORDERED: Ondansetron ODT 4 MG TAB PO PRN ×2 (17:16→23:01)
[2018-08-29] MEDS ORDERED: Ondansetron PF 4 MG/2 ML Vial IVP PRN ×2 (17:16→23:01)
[2018-08-29] MEDS ORDERED: Dextrose 50% Abboject 50 ML SYRINGE SLOW IVP PRN ×2 (17:16→23:00)
[2018-08-29] MEDS ORDERED: hydrALAZINE 20 MG/ML VIAL SLOW IVP PRN ×2 (17:16→23:00)
[2018-08-29] MEDS ORDERED: Sodium Chloride 0.9% 1,000 ML IV SCH (17:16)
[2018-08-29] MEDS ORDERED: Dextrose 5% in Water 1,000 ML IV PRN ×2 (17:16→22:59)
--- NOTE | 2018-08-29 18:03 | RAD ---
LEFT HIP TWO VIEWS: 08/29/18 HISTORY: Hip fracture. FINDINGS: Total hip prosthesis is now in place. No perihardware lucency. Soft tissue gas and skin chey. IMPRESSION: Left hip prosthesis is in good radiographic position. POS: TERE
[2018-08-29] MEDS ORDERED: Famotidine 20 MG TAB PO SCH (21:00)
[2018-08-29] MEDS: CEFAZOLIN 2 GM in Premix Bag 1 BAG IVPB SCH ×3 (23:15→23:31)
[2018-08-29] MEDS: Sodium Chloride 0.9% 1,000 ML IV SCH (23:22)
--- NOTE | 2018-08-29 23:55 | OP ---
DATE OF PROCEDURE: 08/29/2018 PREOPERATIVE DIAGNOSIS: Left femoral neck fracture, displaced. POSTOPERATIVE DIAGNOSIS: Left femoral neck fracture, displaced. PROCEDURE PERFORMED: Left hip hemiarthroplasty. ANESTHESIA: General. SERGEANT OF CORRECTIONS: Yasmin Moise PA-C. ESTIMATED BLOOD LOSS: 250 mL. IMPLANTS: DePuy system was used with a size 7 Ensign stem. A 28 x 44 bipolar cup and a +5 tapered femoral head. COMPLICATIONS: None. DRAINS: None. SPECIMEN: None. OUTCOME: Stable hip hemiarthroplasty. INDICATIONS: The patient is an 78-year-old lady status post ground level fall sustaining a displaced femoral neck fracture. After discussion with the patient including risks and benefits, we decided to proceed with left hip hemiarthroplasty. I discussed with the patient risks of surgery. These include, but are not limited to bleeding, infection, nerve injury, DVT, dislocation, PE, loss of limb or life. The patient appeared to understand and does wish to proceed. Informed consent has been obtained. DESCRIPTION OF PROCEDURE: The patient was brought to the operating room and a time-out performed followed by induction of general anesthesia. The patient was then positioned in the right lateral decubitus position and a sterile prep and drape was performed of the left lower extremity. Next, a curvilinear incision was made centered over the tip of the greater trochanter. After skin was sharply incised, dissection was carried down sharply down to the level of the tensor fascia and fascia jocelyn. The tensor fascia was then incised in line with skin incision and then a Charnley retractor was placed in the wound, reflecting the tensor fascia and fascia jocelyn anteriorly and posteriorly. The trochanteric bursa was then swept off the short external rotators and an elevator was passed under the abductors, exposing the piriformis and the superior inferior gemelli complex. These tendons were then released from the posterior femur, tagged with #1 Vicryl and then reflected posteriorly to protect the sciatic nerve that was previously palpated to identify its location. Next, a T-capsulotomy was performed with leaflets of the capsule tagged with #1 Vicryl as well. A T-handle corkscrew device was then used to remove the femoral head. This was sized to a size 44. Next, an oscillating saw was used to make an initial femoral neck cut. Once performed, the proximal femur was further prepared using a T-handle awl and then progressive T-handle reamers until cortical fit was obtained. This was then followed by insertion of a broach and then progressive broaching performed up to a size 7. Next, the size 7 broach was left in place and then a trial reduction was performed on the broach with a +5 head giving bahai of leg lengths and excellent stability of the hip. These trial components were then removed and then the intramedullary canal of the proximal femur thoroughly irrigated with normal saline using Pulsavac. Next, the size 7 stem was introduced into the proximal femur. Once fully seated, the bipolar head was assembled and applied to the top of this stem. The hip was again reduced, found to have excellent stability. Next, wound closure was performed. This was done in layers with #1 Vicryl for the joint capsule, followed by #1 Vicryl to reapproximate the short external rotators. #1 Vicryl was also used for the fascia jocelyn and tensor fascia followed by 0 Vicryl for Jez fascia, 2-0 Vicryl subcutaneously and chey for the skin. A Xeroform gauze and tape dressing were applied to the thigh and the patient was transferred to recovery room in stable condition. There were no complications. She tolerated the procedure well. Job ID: [id number]
[2018-08-30 00:09] VITALS: BMI 25.6
[2018-08-30] MEDS: Sodium Chloride 0.9% 1,000 ML IV SCH (06:48)
[2018-08-30] MEDS: CEFAZOLIN 2 GM in Premix Bag 1 BAG IVPB SCH ×2 (06:48→14:39)
[2018-08-30 07:20] LABS: #Lymphocytes 0.8 thou/uL (1.20-3.40); #Monocytes 1.3 thou/uL (0.11-0.59); #Neutrophils 7.6 thou/uL (1.40-6.50); %Basophils 0.2 % (0.0-1.0); %Lymphocytes 8.6 % (21.0-51.0); %Monocytes 13.1 % (0.0-10.0); %Neutrophils 78.1 % (42.0-75.0); Hemoglobin 9.6 g/dL (12.0-16.0); Mean Corpuscular HGB CONC 32.8 g/dL (32.0-36.0); Mean Corpuscular Hemoglobin 31.3 pg (27.0-31.0); Mean Corpuscular Volume 95.4 fL (78.0-98.0); Mean Platelet Volume 7.5 fL (7.4-10.4); Platelet Count 209 thou/uL (130-400); RBC Distribution Width 12.4 % (11.5-14.5); Red Blood Cell (RBC) Count 3.05 mill/uL (4.20-5.40); White Blood Cell (WBC) Count 9.7 thou/uL (4.8-10.8)
[2018-08-30 07:37] LABS: Anion Gap 10 mmol/L (10-20); BUN (Urea Nitrogen) 33 mg/dL (9.8-20.1); Calc. Creatinine Clearance 33 mL/min (70-130); Calcium 8.5 mg/dL (7.8-10.44); Carbon Dioxide 26 mmol/L (23-31); Chloride 105 mmol/L (98-107); Estimated GFR-MDRD 37; Glucose 134 mg/dL (83-110); Magnesium 4.6 mg/dL (1.6-2.6); Potassium 4.3 mmol/L (3.5-5.1); Sodium 137 mmol/L (136-145)
[2018-08-30] MEDS ORDERED: Cyclobenzaprine 10 MG TAB PO PRN (11:05)
[2018-08-30] MEDS ORDERED: traMADol HCl 50 MG TAB PO PRN ×2 (11:05)
--- NOTE | 2018-08-30 11:48 | PRG ---
DATE OF SERVICE: 08/30/2018 SUBJECTIVE: The patient is currently on the surgical floor. She is postop day #1, status post a left hip hemiarthroplasty after sustaining a ground level fall resulting in a left femoral neck fracture. The patient tolerated her procedure well overnight, had no issues. This morning, her pain is controlled. She is tolerating a diet and is awaiting physical and occupational therapy. OBJECTIVE: VITAL SIGNS: Temperature 98.4, heart rate 96, blood pressure 102/68, respirations 14, and oxygen saturation is 94% on room air. GENERAL: The patient is resting comfortably in bed. She is awake, alert, and appropriate. HEENT: Unremarkable. LUNGS: Clear to auscultation with good inspiratory and expiratory efforts. HEART: Regular rate and rhythm. ABDOMEN: Soft, flat, nontender with active bowel sounds. EXTREMITIES: Neurovascularly intact x4. Postop dressings are clean, dry, and intact. LABORATORY FINDINGS: White blood cell count 9.7, hemoglobin 9.6, hematocrit 29.1, and platelets 209. Sodium 137, potassium 4.3, chloride 105, CO2 of 26, BUN 33, creatinine 1.36, glucose 134, magnesium 4.6, and phosphorus 4.0. There are no radiographs reviewed this morning. ASSESSMENT: 1. Status post ground level fall. 2. Status post left proximal femur fracture, status post left hip hemiarthroplasty. 3. Acute on chronic kidney injury, improving. PLAN: Plan will be to continue supportive care. Physical and Occupational Therapy. We will discuss placement with the patient. Resume her home medications and make pain medications all p.o. now. The evaluation and examination were done with Dr. Lee this morning during rounds. Job ID: [id number]
[2018-08-30] MEDS: Acetaminophen 500 MG TAB PO SCH ×3 (12:28→17:46)
[2018-08-30] MEDS: Aspirin 81 mg Enteric Coated Tablet PO SCH (20:30)
[2018-08-30] MEDS: Famotidine 20 MG TAB PO SCH (20:30)
[2018-08-30] MEDS: Carvedilol 3.125 MG TAB PO SCH (21:45)
[2018-08-31] MEDS: Acetaminophen 500 MG TAB PO SCH ×4 (00:24→17:30)
[2018-08-31 04:55] LABS: #Basophils 0.1 thou/uL (0.0-0.2); #Eosinphils 0.2 thou/uL (0.0-0.7); #Lymphocytes 1.2 thou/uL (1.20-3.40); #Neutrophils 5.7 thou/uL (1.40-6.50); %Basophils 0.7 % (0.0-1.0); %Eosinophils 1.9 % (0.0-10.0); %Monocytes 12.5 % (0.0-10.0); %Neutrophils 69.8 % (42.0-75.0); Hemoglobin 7.7 g/dL (12.0-16.0); Mean Corpuscular HGB CONC 32.8 g/dL (32.0-36.0); Mean Corpuscular Hemoglobin 31.6 pg (27.0-31.0); Mean Corpuscular Volume 96.3 fL (78.0-98.0); Mean Platelet Volume 7.3 fL (7.4-10.4); Platelet Count 168 thou/uL (130-400); RBC Distribution Width 12.4 % (11.5-14.5); Red Blood Cell (RBC) Count 2.45 mill/uL (4.20-5.40); White Blood Cell (WBC) Count 8.1 thou/uL (4.8-10.8)
[2018-08-31 05:16] LABS: Anion Gap 9 mmol/L (10-20); BUN (Urea Nitrogen) 36 mg/dL (9.8-20.1); Calc. Creatinine Clearance 34 mL/min (70-130); Carbon Dioxide 27 mmol/L (23-31); Chloride 106 mmol/L (98-107); Estimated GFR-MDRD 38; Glucose 105 mg/dL (83-110); Magnesium 2.2 mg/dL (1.6-2.6); Phosphorus 4.4 mg/dL (2.3-4.7); Potassium 4.1 mmol/L (3.5-5.1); Sodium 138 mmol/L (136-145)
[2018-08-31] MEDS: Furosemide 40 MG TAB PO SCH (08:15)
[2018-08-31] MEDS: Aspirin 81 mg Enteric Coated Tablet PO SCH ×2 (08:15→21:08)
[2018-08-31] MEDS: Ramipril 5 MG CAP PO SCH (08:15)
[2018-08-31] MEDS: Carvedilol 3.125 MG TAB PO SCH ×2 (08:15→21:08)
[2018-08-31] MEDS ORDERED: Aspirin 81 mg Enteric Coated Tablet PO SCH (09:00)
--- NOTE | 2018-08-31 13:13 | PRG ---
DATE OF SERVICE: SUBJECTIVE: The patient is currently on the surgical floor. She is postop day #2, status post left hip hemiarthroplasty after sustaining a hip fracture from a ground level fall. The patient did well overnight. She has started working with Physical and Occupational Therapy. Her pain is controlled and she is tolerating a diet. Case Management and I had an extensive conversation with her yesterday trying to convince her to go to inpatient rehab and she is fairly adamant about going home, so today we will start working on arranging home health and home PT if possible. OBJECTIVE: VITAL SIGNS: Temperature is 98.7, heart rate 87, blood pressure 119/70, respirations 16, oxygen saturation is 97% on room air. GENERAL: The patient is resting comfortably in bed. She is awake, alert, appropriate. HEENT: Unremarkable. LUNGS: Clear to auscultation with good inspiratory and expiratory effort. HEART: Regular rate and rhythm. ABDOMEN: Soft, flat, nontender with active bowel sounds. EXTREMITIES: Neurovascularly intact x4. Postop dressing is clean, dry, and intact. LABORATORY FINDINGS: White blood cell count 8.1, hemoglobin 7.7, hematocrit 23.6, platelets 168. Sodium 138, potassium 4.1, chloride 106, CO2 of 27, BUN 36, creatinine 1.34, glucose 105, magnesium 2.2, phosphorus 4.4. There are no radiographs reviewed this morning. ASSESSMENT: 1. Status post ground level fall. 2. Status post left hip hemiarthroplasty after sustaining a left hip fracture. 3. Acute on chronic kidney injury, stable. PLAN: Plan will be to continue supportive care. Discussed placement options and proceed once that plan has been determined. The evaluation and examination were done with Dr. Lee this morning during rounds. Job ID: [id number]
[2018-08-31] MEDS: Ferrous Sulfate 325 MG TAB PO SCH (17:31)
[2018-08-31] MEDS: Ascorbic Acid 500 mg Chewable Tablet PO SCH (21:08)
[2018-08-31] MEDS: Senokot S 8.6-50 MG TAB PO SCH (21:08)
[2018-08-31] MEDS: Famotidine 20 MG TAB PO SCH (21:09)
[2018-09-01] MEDS: Acetaminophen 500 MG TAB PO SCH ×5 (00:05→22:37)
[2018-09-01 05:54] LABS: #Eosinphils 0.2 thou/uL (0.0-0.7); #Lymphocytes 1.3 thou/uL (1.20-3.40); #Neutrophils 4.7 thou/uL (1.40-6.50); %Basophils 0.7 % (0.0-1.0); %Eosinophils 3.2 % (0.0-10.0); %Lymphocytes 17.6 % (21.0-51.0); %Monocytes 14.4 % (0.0-10.0); %Neutrophils 64.2 % (42.0-75.0); Hemoglobin 7.5 g/dL (12.0-16.0); Mean Corpuscular HGB CONC 32.9 g/dL (32.0-36.0); Mean Corpuscular Hemoglobin 31.8 pg (27.0-31.0); Mean Corpuscular Volume 96.6 fL (78.0-98.0); Mean Platelet Volume 7.2 fL (7.4-10.4); Platelet Count 156 thou/uL (130-400); RBC Distribution Width 12.3 % (11.5-14.5); Red Blood Cell (RBC) Count 2.35 mill/uL (4.20-5.40); White Blood Cell (WBC) Count 7.3 thou/uL (4.8-10.8)
[2018-09-01] MEDS: Polyethylene Glycol 3350 17 GM Packet PO SCH (08:42)
[2018-09-01] MEDS: Senokot S 8.6-50 MG TAB PO SCH ×2 (08:42→20:12)
[2018-09-01] MEDS: Ferrous Sulfate 325 MG TAB PO SCH ×2 (08:42→18:01)
[2018-09-01] MEDS: Ascorbic Acid 500 mg Chewable Tablet PO SCH ×2 (08:43→20:12)
[2018-09-01] MEDS: Aspirin 81 mg Enteric Coated Tablet PO SCH ×2 (08:43→20:12)
[2018-09-01] MEDS: Furosemide 40 MG TAB PO SCH (08:43)
[2018-09-01] MEDS: Carvedilol 3.125 MG TAB PO SCH ×2 (08:46→20:41)
[2018-09-01] MEDS: Ramipril 5 MG CAP PO SCH (08:47)
--- NOTE | 2018-09-01 16:11 | PRG ---
DATE OF SERVICE: 09/01/2018 SUBJECTIVE: The patient was seen this morning ambulating to restroom. Reported pain was well controlled and had no acute events overnight. Tolerating diet. Denies nausea, vomiting, or diarrhea. OBJECTIVE: VITAL SIGNS: Temperature 98.1, pulse 76, respirations 16, oxygen saturation 98% on room air, blood pressure 120/68. GENERAL: Well-appearing elderly female, ambulating with no signs of acute distress. PULMONARY: Equal chest rise and fall. Clear breath sounds throughout bilaterally. No significant signs of pulmonary distress. CARDIAC: Regular rate and rhythm. No murmurs, gallops, or rubs. GI: Abdomen is soft, nontender, and nondistended. EXTREMITIES: 2+ pulses in all extremities. Gross motor and sensation intact in all extremities. OR dressing is clean, dry, and intact with no signs of infections. No significant swelling noted. LABORATORY FINDINGS: White count 7.3, hemoglobin 7.5, hematocrit 22.7, platelets 156. DIAGNOSTIC FINDINGS: There are no new diagnostic findings to report. ASSESSMENT: 1. Status post mechanical fall from standing. 2. Left hip fracture, status post repair. 3. Acute kidney injury, improved. PLAN: The patient was to be discharged home today, but family at bedside convinced the patient that acute rehab was in her best interest. Medical Team also advised the patient that acute inpatient rehab was also in her best interest. The patient did agree to inpatient rehab, and that process was started today. Lactulose was also started today for bowel movement for her. She will continue physical and occupational therapy until the time of her discharge. The patient is ready for discharge at this time. The patient was seen and examined by Dr. Lee this morning during rounds. Job ID: [id number]
[2018-09-01] MEDS: Famotidine 20 MG TAB PO SCH (20:12)
[2018-09-02] MEDS: Acetaminophen 500 MG TAB PO SCH ×2 (06:41→11:29)
[2018-09-02] MEDS: Senokot S 8.6-50 MG TAB PO SCH (09:06)
[2018-09-02] MEDS: Ferrous Sulfate 325 MG TAB PO SCH (09:06)
[2018-09-02] MEDS: Ascorbic Acid 500 mg Chewable Tablet PO SCH (09:06)
[2018-09-02] MEDS: Aspirin 81 mg Enteric Coated Tablet PO SCH (09:06)
[2018-09-02] MEDS: Polyethylene Glycol 3350 17 GM Packet PO SCH (09:07)
[2018-09-02] MEDS: Ramipril 5 MG CAP PO SCH (09:07)
[2018-09-02] MEDS: Carvedilol 3.125 MG TAB PO SCH (09:07)
[2018-09-02 16:15] VITALS: BP 124/67; TEMP 98.2
[2018-09-02] MEDS ORDERED: Furosemide 40 MG TAB PO SCH (17:00)
[2018-09-02] MEDS ORDERED: Famotidine 20 MG TAB PO SCH (21:00)
--- NOTE | 2018-09-02 21:47 | EKG ---
Test Reason : Blood Pressure : / mmHG Vent. Rate : 078 BPM Atrial Rate : 078 BPM P-R Int : 160 ms QRS Dur : 144 ms QT Int : 442 ms P-R-T Axes : 020 000 006 degrees QTc Int : 503 ms Normal sinus rhythm Right bundle branch block Abnormal ECG Confirmed by CARRILLO BARRIENTOS ([id number]), desk editor MATHIEU CUEVAS ([id number] on 09/02/2018 9:46:25 PM Referred By: Confirmed By:CARRILLO BARRIENTOS
--- NOTE | 2018-09-03 05:18 | DIS ---
DATE OF ADMISSION: 08/29/2018 DATE OF DISCHARGE: 09/02/2018 This is Lou Figueroa NP dictating a report for Dr. Lee. CONSULTS: Dr. Garza. ATTENDING: Dr. Lee. DISCHARGE ATTENDING: Dr. Lee. PROCEDURES: 1. On 08/29/2018, CT Angiography of neck and intracranial. Impression, neck CTA, no definite evidence of lung parenchymal lesions seen. Intracranial CTA, impression, the right and left MCA and BURTON vessels are patent without evidence of significant stenosis. The right and left vertebral arteries as well as the basilar artery and posterior cerebral arteries are patent. 2. CT [place] angio with contrast on 08/29/2018, impression, the right and left MCA and BURTON vessels are patent without evidence of significant stenosis. 3. Brain CT on 08/29/2018, stable exam, no evidence of acute intracranial process. 4. Pelvis x-ray, left femoral neck fracture. 5. Chest x-ray on 08/29/2018, impression, no focal consolidation or alveolar edema. 6. On 08/29/2018, hip x-ray, left femoral neck fracture. 7. On 08/29/2018, left hip hemiarthroplasty by Dr. Garza. PRIMARY DIAGNOSIS: Left femoral neck fracture. SECONDARY DIAGNOSES: 1. History of hypertension. 2. Acute on chronic kidney injury. DISCHARGE MEDICATIONS: 1. Acetaminophen 1000 mg p.o. q.6 hours. 2. Vitamin C 500 mg p.o. b.i.d. 3. Aspirin 81 mg p.o. b.i.d. 4. Carvedilol 3.125 one tablet p.o. b.i.d. 5. Pepcid 20 mg p.o. b.i.d. 6. Ferrous sulfate 325 mg p.o. b.i.d. 7. Lasix 40 mg p.o. daily. 8. MiraLAX 17 g p.o. daily. 9. Altace 10 mg p.o. daily. 10. Senokot S one tablet p.o. daily. 11. Tramadol 50 mg p.o. q.6 hours as needed for pain, #20. There are no discontinued medications. HISTORY OF PRESENT ILLNESS AND HOSPITAL COURSE: This is an 78-year-old female, who sustained a ground level fall, landing on her left side. The patient was found to have a left femoral neck fracture and was taken to the OR for a left hemiarthroplasty by Dr. Garza. The patient denied hitting her head or having any loss of consciousness. The patient also denied any dizziness, weakness, or syncopal type symptoms prior to falling. The patient did well with physical therapy and occupational therapy. Her pain was well controlled postoperatively. The patient had no significant events during her hospital stay. On the day of exam, the patient's vital signs were stable. The patient had no complaints. The patient initially was approved to go to inpatient rehab, although the patient refused. On the day of discharge, the patient's exam was unremarkable including cardiopulmonary and GI exam. The patient was stable for discharge back home to [facility] with home health services. The plan was discussed with Dr. Lee, who also agrees. DISPOSITION: Stable. DISCHARGE INSTRUCTIONS: 1. Location: Home assisted living with home health for physical therapy. 2. Diet: Heart healthy diet. 3. Activity: Orthopedic limitations. Weightbearing as tolerated to left lower extremity. The patient is to use walker with ambulation. FOLLOWUP: 1. Follow up with Dr. Lee as needed. Please call for any questions. 2. Follow up with Dr. Garza in 10 days. Please call the office to schedule an appointment. 3. Follow up with primary care provider, Dr. Greer as needed. 4. [facility] will be the home health service. Job ID: [id number]
== END 2018-09-02 17:55 | disposition home health service (06) | DRG 470 ==
LOC: ERS 12:34 → SURG B 21:11
PROVIDERS: ADMIT Orthopaedic Surgery; ATTEND Orthopaedic Surgery
PROC: 0SRS0JZ Replacement of Left Hip Joint, Femoral Surface with Synthetic Substitute, Open Approach (ICD-10-PCS; principal; 2018-08-29)
DX: S72.002A Fracture of unspecified part of neck of left femur, initial encounter for closed fracture (principal); N17.9 Acute kidney failure, unspecified; Z88.2 Allergy status to sulfonamides; Z90.710 Acquired absence of both cervix and uterus; W18.30XA Fall on same level, unspecified, initial encounter; I12.9 Hypertensive chronic kidney disease with stage 1 through stage 4 chronic kidney disease, or unspecified chronic kidney disease; Z79.82 Long term (current) use of aspirin; Z79.899 Other long term (current) drug therapy
CPT/HCPCS: 36415; 36416; 70450; 70496; 70498; 71045; 72170; 80048; 80053; 83735; 84100; 84484; 85025; 85610; 85730; 93005; J1100; J2001; J2270; J2370; J2405; J2704; J3010; Q9966

== ENCOUNTER 2018-09-04 16:18 | Inpatient (IN) | payer MEDICARE, BC ==
--- NOTE | 2018-09-04 17:25 | RAD ---
FExam: 2 views left hip Provided clinical history: Hip pain FINDINGS: Comparison 08/29/2018. Interval periprosthetic fracture involving both greater and lesser tuberosities with associated displacement. No change in position or alignment of the left hip arthroplasty. Cutan eous chey remain lateral to the left hip. IMPRESSION: Acute left periprosthetic proximal femoral fracture.
[2018-09-04] MEDS ORDERED: Morphine 4 MG/ML VIAL ONE (17:55)
[2018-09-04] MEDS ORDERED: Ondansetron PF 4 MG/2 ML Vial ONE (17:56)
[2018-09-04 17:57] LABS: #Basophils 0.1 thou/uL (0.0-0.2); #Eosinphils 0.2 thou/uL (0.0-0.7); #Lymphocytes 1.2 thou/uL (1.20-3.40); #Monocytes 1.2 thou/uL (0.11-0.59); #Neutrophils 7.7 thou/uL (1.40-6.50); %Basophils 0.7 % (0.0-1.0); %Lymphocytes 11.9 % (21.0-51.0); %Monocytes 11.8 % (0.0-10.0); %Neutrophils 73.7 % (42.0-75.0); Hemoglobin 8.5 g/dL (12.0-16.0); Mean Corpuscular HGB CONC 32.5 g/dL (32.0-36.0); Mean Corpuscular Hemoglobin 30.9 pg (27.0-31.0); Mean Corpuscular Volume 95.1 fL (78.0-98.0); Mean Platelet Volume 7.1 fL (7.4-10.4); Platelet Count 362 thou/uL (130-400); RBC Distribution Width 12.5 % (11.5-14.5); Red Blood Cell (RBC) Count 2.73 mill/uL (4.20-5.40); White Blood Cell (WBC) Count 10.4 thou/uL (4.8-10.8)
[2018-09-04 18:04] LABS: Prothrombin Time 12.8 SEC (12.0-14.7)
[2018-09-04 18:05] LABS: PTT 29.3 SEC (22.9-36.1)
[2018-09-04 18:17] LABS: ALT (SGPT) Less than 7 U/L (8-55); AST (SGOT) 28 U/L (5-34); Albumin 3.4 g/dL (3.4-4.8); Alkaline Phosphatase 73 U/L (40-150); Anion Gap 14 mmol/L (10-20); BUN (Urea Nitrogen) 36 mg/dL (9.8-20.1); Calc. Creatinine Clearance 0 mL/min (70-130); Calcium 8.7 mg/dL (7.8-10.44); Carbon Dioxide 26 mmol/L (23-31); Chloride 108 mmol/L (98-107); Estimated GFR-MDRD 28; Globulin 2.8 g/dL (2.4-3.5); Glucose 105 mg/dL (83-110); Potassium 4.7 mmol/L (3.5-5.1); Protein, Total 6.2 g/dL (6.0-8.3); Sodium 143 mmol/L (136-145)
[2018-09-04] MEDS ORDERED: CEFAZOLIN 2 GM in Premix Bag 1 BAG IVPB SCH (18:30)
[2018-09-04] MEDS ORDERED: Ondansetron PF 4 MG/2 ML Vial IVP PRN (19:05)
[2018-09-04] MEDS ORDERED: Dextrose 5% in Water 1,000 ML IV PRN (19:05)
[2018-09-04] MEDS ORDERED: Dextrose 50% Abboject 50 ML SYRINGE SLOW IVP PRN (19:05)
[2018-09-04] MEDS ORDERED: Ondansetron ODT 4 MG TAB PO PRN (19:05)
[2018-09-04] MEDS ORDERED: hydrALAZINE 20 MG/ML VIAL SLOW IVP PRN (19:05)
[2018-09-04] MEDS ORDERED: traMADol HCl 50 MG TAB PO PRN (19:13)
[2018-09-04 19:33] LABS: Magnesium 2.4 mg/dL (1.6-2.6); Phosphorus 3.6 mg/dL (2.3-4.7)
--- NOTE | 2018-09-04 19:36 | CON ---
DATE OF CONSULTATION: We were asked by Trauma in the emergency room to see the patient. The patient was in the hospital this past month on 08/29/2018. She had a left hip fracture procedure with a hemiarthroplasty. She had done okay in the hospital. We discussed at length multiple people, Case Management, and Therapy that she would probably benefit from going to rehab. The patient was quite adamant she had to get home and take care of personal business. The patient today was working with Therapy. She walked about 10 feet and went to turn and felt something odd in her hip. It was a little bit painful, but was not miserable. She was able to complete the walk, but the pain started getting more and more acute and problematic for her and could not be controlled with the medication she was taking. She was brought to the hospital and found to have a fracture around her stem on the less trochanter side. The patient's son and daughter in the room and the patient otherwise has no other complaints than the hip pain. Denies any dizziness. Did not hit her head. No numbness and tingling down the leg, just pain in that left hip. Currently without moving, she is okay any movement really increases the pain quite a bit. Past medical history, everything is for the most part, unchanged. ALLERGIES: SULFA. CURRENT MEDICATIONS: 1. Tylenol. 2. Ascorbic acid. 3. Aspirin 81 mg b.i.d. 4. Carvedilol. 5. Famotidine. 6. Ferrous sulfate. 7. Furosemide. 8. Polyethylene glycol. 9. Ramipril. 10. Sennosides. 11. Docusate sodium. 12. Tramadol. PAST MEDICAL HISTORY: Again as above is unchanged. Positive for hypertension and a leaky heart valve. PAST SURGICAL HISTORY: Surgeries; tonsillectomy, hysterectomy, fibroid tumor removal, and a left hip hemiarthroplasty. SOCIAL HISTORY: Lives independently at [place], I believe with her son. Prior to her hip, she was an independent ambulator and was working back towards this when she had the re-fracture. No alcohol, nicotine, or drug use. REVIEW OF SYSTEMS: No chest pain, shortness of breath, bowel or bladder issues, just left hip pain. Otherwise, rest of review of systems is negative. PHYSICAL EXAMINATION: GENERAL: Well-nourished, well-developed female, resting on the gurney in room 25 in the ER. Speech clear, fluent, oriented x3. Family is at the bedside. HEENT: Normal exam. Face symmetric. Tongue midline. NECK: Supple. Trachea midline. RESPIRATORY: No distress. EXTREMITIES: Upper extremities equal size, shape, and symmetry. Normal bulk and tone. Lower extremities, she still has chey on the left lower extremity. Her left leg is mildly shortened and outward rotated, but she is more comfortable that way with any movement of that hip causes her a great deal of pain. Sensations of bilateral lower extremities are intact as are DP and PT pulses. ASSESSMENT: Hardware failure, left hip. PLAN: I spoke with family and patient extensively about options. The option we need to do is to remove her current system in her hip joint and put some cables around the hip and then put a cemented stem in and we will talk about size differences once we get in there, but family understands we may not use a difference I stem. This should be a little more stable for her, but again as we did at last visit, I am going to strongly encourage that she consider rehab and I think this time she and the family are in agreement that would probably be a better idea. We have gone over the risks and benefits of surgery to the patient. Family understand. They are amenable to go forth with surgery. We will let her eat tonight. She is being admitted by Trauma. Keep her n.p.o. after midnight on midnight and plan on doing her tomorrow. Job ID: [id number]
[2018-09-04] MEDS: Acetaminophen 500 MG TAB PO SCH (21:55)
[2018-09-04] MEDS: Famotidine 20 MG TAB PO SCH (21:55)
[2018-09-04] MEDS: Senokot S 8.6-50 MG TAB PO SCH (21:55)
[2018-09-04] MEDS: Sodium Chloride 0.9% 1,000 ML IV SCH (21:55)
[2018-09-04] MEDS: traMADol HCl 50 MG TAB PO SCH (21:56)
[2018-09-04] MEDS ORDERED: Ibuprofen 600 MG TAB PO SCH (22:00)
[2018-09-04 22:53] VITALS: BMI 26.2
[2018-09-05] MEDS: traMADol HCl 50 MG TAB PO SCH ×4 (03:42→21:54)
[2018-09-05] MEDS: Acetaminophen 500 MG TAB PO SCH ×4 (03:42→21:55)
[2018-09-05] MEDS: Sodium Chloride 0.9% 1,000 ML IV SCH (06:29)
[2018-09-05 07:12] LABS: #Basophils 0.1 thou/uL (0.0-0.2); #Eosinphils 0.3 thou/uL (0.0-0.7); #Lymphocytes 1.7 thou/uL (1.20-3.40); #Monocytes 0.9 thou/uL (0.11-0.59); #Neutrophils 5.1 thou/uL (1.40-6.50); %Basophils 0.9 % (0.0-1.0); %Eosinophils 3.2 % (0.0-10.0); %Lymphocytes 20.9 % (21.0-51.0); %Monocytes 11.1 % (0.0-10.0); %Neutrophils 63.8 % (42.0-75.0); Hemoglobin 6.8 g/dL (12.0-16.0); Mean Corpuscular HGB CONC 31.1 g/dL (32.0-36.0); Mean Corpuscular Hemoglobin 30.1 pg (27.0-31.0); Platelet Count 293 thou/uL (130-400); RBC Distribution Width 12.6 % (11.5-14.5); Red Blood Cell (RBC) Count 2.26 mill/uL (4.20-5.40); White Blood Cell (WBC) Count 8.1 thou/uL (4.8-10.8)
[2018-09-05 07:32] LABS: Anion Gap 8 mmol/L (10-20); BUN (Urea Nitrogen) 31 mg/dL (9.8-20.1); Calc. Creatinine Clearance 36 mL/min (70-130); Carbon Dioxide 26 mmol/L (23-31); Chloride 111 mmol/L (98-107); Estimated GFR-MDRD 40; Glucose 93 mg/dL (83-110); Potassium 4.4 mmol/L (3.5-5.1); Sodium 141 mmol/L (136-145)
[2018-09-05 07:34] LABS: Phosphorus 3.8 mg/dL (2.3-4.7)
[2018-09-05] MEDS: Senokot S 8.6-50 MG TAB PO SCH ×2 (08:45→21:53)
[2018-09-05] MEDS: Polyethylene Glycol 3350 17 GM Packet PO SCH (08:47)
[2018-09-05] MEDS ORDERED: Carvedilol 3.125 MG TAB PO SCH (09:00)
[2018-09-05] MEDS: Carvedilol 3.125 MG TAB PO SCH ×2 (09:35→21:53)
--- NOTE | 2018-09-05 10:45 | HP ---
CONSULTS: Dr. Garza. ADDITIONAL ATTENDING DOCTOR: Conrad Hayward MD HISTORY OF PRESENT ILLNESS: This is an 78-year-old female, who was brought in by EMS from [facility]. The patient reports left hip pain. The patient was walking during her physical therapy when she felt pain in her left hip and heard in an abnormal sound. The patient is postop from her . PAST MEDICAL HISTORY: Hypertension and a leaky valve. ALLERGIES: SULFA. PAST SURGICAL HISTORY: Tonsillectomy, hysterectomy, and fibroid tumor removal. MEDICATIONS: 1. Tramadol. 2. Tylenol. 3. Lasix. 4. Iron. 5. Senokot S. 6. Pepcid. 7. Furosemide 20 mg daily. 8. Carvedilol 3.125 mg 2 times a day. 9. Ramipril 10 mg once a day. SOCIAL HISTORY: The patient lives at [facility] with her son. The patient ambulates with a walker. The patient denies drug use or alcohol use. REVIEW OF SYSTEMS: A 10-point review of systems is negative otherwise as stated in the above HPI. PHYSICAL EXAMINATION: VITAL SIGNS: Blood pressure 159/92, respirations 17, 99% on room air, pulse 88, and temperature 99.1. GENERAL: The patient is awake and alert, in no distress. The patient's daughter at bedside. HEENT: Atraumatic and normocephalic. NECK: Supple neck. CHEST: Respirations even and nonlabored. Bilateral breath sounds clear. No wheezing, rales, or rhonchi. CARDIOVASCULAR: Regular rate and rhythm. Grade 4 systolic murmur present. ABDOMEN: Soft, nontender, and nondistended. Active bowel sounds. PELVIS: Tenderness to the left hip. Bruising to the left hip and thigh. Postop dressing clean, dry, and intact. EXTREMITIES: Neurovascularly intact x4. Distal pulses 2+. Left leg is externally rotated with shortening. LABORATORY DATA: WBC 10.4, RBC 2.73, hemoglobin 8.5, and hematocrit 26.0. Sodium 143, potassium 4.7, chloride 108, BUN 36, creatinine 1.73, estimated GFR 28, glucose 105, calcium 8.7, total bilirubin 1, AST 28, ALT less than 7, and alkaline phos 73. DIAGNOSTICS: Left hip x-ray, acute left periprosthetic proximal femoral fracture. ASSESSMENT: 1. Acute left periprosthetic proximal femoral fracture without fall. 2. Acute on chronic kidney injury. 3. History of hypertension. PLAN: We will place the patient n.p.o. after midnight. We will start maintenance fluids and pain control. Plan is for Dr. Garza to take the patient to the OR for surgical repair tomorrow. Postop, the patient will have physical and occupational therapy and resume her home medications. A rehab screen has been placed and hopefully, the patient will agree to going to rehab this visit. The patient was evaluated in the emergency room by Dr. Garza, who plans to take the patient to the operating room tomorrow. The plan will be discussed with Dr. Hayward after this dictation. Job ID: [id number]
[2018-09-05] MEDS ORDERED: Lidocaine 1% PF 5 ML VIAL ONE (14:32)
[2018-09-05] MEDS ORDERED: Dexamethasone 20 MG/5 ML VIAL ONE (14:32)
[2018-09-05] MEDS ORDERED: ePHEDrine 50 MG/ML VIAL ONE (14:32)
[2018-09-05] MEDS ORDERED: PROPOFOL 200 MG/20 ML VIAL ONE (14:32)
[2018-09-05] MEDS ORDERED: Ondansetron PF 4 MG/2 ML Vial ONE (14:32)
[2018-09-05] MEDS ORDERED: Rocuronium Bromide 10 MG/ML (10ML VIAL) ONE (14:32)
[2018-09-05] MEDS ORDERED: Glycopyrrolate 0.2 MG/ML 5 ML SYRINGE ONE (14:32)
[2018-09-05] MEDS ORDERED: Fentanyl 100 MCG/2 ML VIAL ONE (16:00)
--- NOTE | 2018-09-05 16:38 | PRG ---
DATE OF SERVICE: 09/05/2018 SUBJECTIVE: The patient was seen this morning, sitting up in bed with no complaints. She reported pain is well controlled. She slept well overnight. She tolerated her diet yesterday, but is n.p.o. now. Reports she has not had a bowel movement, but her last bowel movement was yesterday. Denies nausea, vomiting, or diarrhea. She is going to the OR today for her hip fracture/hardware failure. OBJECTIVE: VITAL SIGNS: Temperature 97.9, pulse 80, respirations 16, oxygen saturation 95% on room air, and blood pressure 156/85. GENERAL: Well-appearing elderly female, sitting up in bed with no signs of acute distress. PULMONARY: Equal chest rise and fall. Clear breath sounds bilaterally. No signs of acute pulmonary distress. CARDIAC: Regular rate and rhythm. No murmurs, gallops, or rubs. GI: Abdomen is soft, nontender, and nondistended. EXTREMITIES: Gross motor and sensation intact in all extremities. 2+ pulses in all extremities. No significant swelling noted. LABORATORY FINDINGS: White count 8.1, hemoglobin 6.8, hematocrit 21.9, and platelets 293. Sodium 141, potassium 4.4, chloride 111, carbon dioxide 26, BUN 31, creatinine 1.28, glucose 93, phosphorus 3.8, and magnesium 2.0. DIAGNOSTIC FINDINGS: There are no new diagnostic findings to report. ASSESSMENT: 1. Left hip hardware failure, status post fixation. 2. Acute kidney injury. 3. Acute blood loss anemia. 4. History of hypertension and cardiac valvular disease. PLAN: The patient is n.p.o., to go to the OR today with Dr. Garza, to address the hardware failure in her left hip. She is n.p.o. and has normal saline at 90 an hour. She will receive 2 units of packed red blood cells for hemoglobin of 6.8. She is going to the OR today. Postoperatively, she will work with Physical and Occupational Therapy. The patient has agreed to go to acute rehab. Rehab has agreed to also accommodate her son, who is disabled and lives with the patient. Postop, she can have a regular diet and will discontinue normal saline. The patient was discussed with Dr. Lee this morning. Job ID: [id number]
[2018-09-05] MEDS ORDERED: Labetalol HCl 100 MG/20 ML VIAL ONE (20:25)
[2018-09-05] MEDS: Famotidine 20 MG TAB PO SCH (21:53)
[2018-09-05] MEDS: Ascorbic Acid 500 mg Chewable Tablet PO SCH (21:53)
[2018-09-05] MEDS: CEFAZOLIN 2 GM in Premix Bag 1 BAG IVPB SCH (21:55)
[2018-09-06] MEDS: Acetaminophen 500 MG TAB PO SCH ×4 (02:56→20:58)
[2018-09-06] MEDS: traMADol HCl 50 MG TAB PO SCH ×4 (02:57→20:59)
[2018-09-06] MEDS: CEFAZOLIN 2 GM in Premix Bag 1 BAG IVPB SCH ×3 (05:43→21:01)
[2018-09-06 05:53] LABS: #Lymphocytes 0.6 thou/uL (1.20-3.40); #Neutrophils 8.4 thou/uL (1.40-6.50); %Basophils 0.3 % (0.0-1.0); %Eosinophils 0.3 % (0.0-10.0); %Lymphocytes 5.7 % (21.0-51.0); %Monocytes 9.9 % (0.0-10.0); %Neutrophils 83.8 % (42.0-75.0); Hemoglobin 8.5 g/dL (12.0-16.0); Mean Corpuscular HGB CONC 32.6 g/dL (32.0-36.0); Mean Corpuscular Hemoglobin 30.9 pg (27.0-31.0); Mean Corpuscular Volume 94.9 fL (78.0-98.0); Mean Platelet Volume 6.8 fL (7.4-10.4); Platelet Count 292 thou/uL (130-400); Red Blood Cell (RBC) Count 2.76 mill/uL (4.20-5.40)
[2018-09-06 06:10] LABS: Anion Gap 11 mmol/L (10-20); BUN (Urea Nitrogen) 26 mg/dL (9.8-20.1); Calc. Creatinine Clearance 41 mL/min (70-130); Calcium 8.3 mg/dL (7.8-10.44); Carbon Dioxide 24 mmol/L (23-31); Chloride 110 mmol/L (98-107); Estimated GFR-MDRD 47; Glucose 129 mg/dL (83-110); Magnesium 1.9 mg/dL (1.6-2.6); Phosphorus 4.1 mg/dL (2.3-4.7); Potassium 4.8 mmol/L (3.5-5.1); Sodium 140 mmol/L (136-145)
--- NOTE | 2018-09-06 08:35 | RAD ---
LEFT HIP TWO VIEWS: History: Post op evaluation. FINDINGS: Post op changes are noted. There are lateral skin chey. A left hip prosthesis has been placed. Com ponent appear in adequate position and alignment. IMPRESSION: Post-operative changes. Prosthesis appears adequately positioned. POS: [facility]
[2018-09-06] MEDS: Ascorbic Acid 500 mg Chewable Tablet PO SCH ×2 (09:18→20:59)
[2018-09-06] MEDS: Ferrous Sulfate 325 MG TAB PO SCH ×2 (09:18→16:46)
[2018-09-06] MEDS: Carvedilol 3.125 MG TAB PO SCH ×2 (09:19→20:59)
[2018-09-06] MEDS: Senokot S 8.6-50 MG TAB PO SCH ×2 (09:19→20:59)
[2018-09-06] MEDS: Ramipril 5 MG CAP PO SCH (09:19)
[2018-09-06] MEDS: Polyethylene Glycol 3350 17 GM Packet PO SCH (09:20)
[2018-09-06] MEDS: Aspirin 81 mg Enteric Coated Tablet PO SCH ×2 (09:23→20:59)
--- NOTE | 2018-09-06 09:50 | OP ---
DATE OF PROCEDURE: 09/05/2018 PREOPERATIVE DIAGNOSIS: Left periprosthetic hip fracture. POSTOPERATIVE DIAGNOSIS: Left periprosthetic hip fracture. SURGICAL PROCEDURE: Revision left hip hemiarthroplasty. ANESTHESIA: General. CABLE TOOL DRILLER: Yasmin Moise PA-C. ESTIMATED BLOOD LOSS: 500 mL. IMPLANTS: De[employer]uy system was used with a size 5 Summers stem with centralizer and the previously placed bipolar head was reused. The patient also had a total of three 1.7 mm cables and crimps from [employer]. The [place] simplex antibiotic cement was utilized as well. COMPLICATIONS: None. DRAINS: None. SPECIMEN: Explanted, uncemented stem from her initial hemiarthroplasty discarded. OUTCOME: Stable hemiarthroplasty. INDICATIONS: The patient is an 78-year-old lady, status post femoral neck fracture, who is now approximately 2 weeks postop with a hemiarthroplasty. While in physical therapy, she sustained a mild twist to the leg and refractured, basically fracturing through the calcar and displacing the lesser trochanter. There is also been subsidence of the femoral stem. As such, the patient is now taken back to the operating room for revision surgery and cabling of this fracture. Informed consent has been obtained. I believe all questions have been answered. Risks and benefits have been discussed. Risks include, but are not limited to bleeding, infection, nerve injury, DVT, PE, re-fracture, dislocation, loss of limb or life. The patient appears to understand and does wish to proceed. DESCRIPTION OF PROCEDURE: The patient was brought to the operating room and a time-out performed, followed by induction of general anesthesia. Next, she was positioned in the right lateral decubitus position and then chey were removed, followed by a sterile prep and drape. The prior skin incision was utilized once again with some extension distally. After sutures were removed in the subcutaneous layer, dissection was carried down through Jez's fascia to the underlying fascia jocelyn and tensor fascia. Sutures were then removed through this layer opening that up, revealing the greater trochanter. The short external rotators were still attached. These were then released with their suture and reflected posteriorly. The capsule was also still closed in this, the 3 sutures closing the capsule were then released revealing the underlying hemiarthroplasty head. The hip was then dislocated. With minimal difficulty, the stem was then removed and the bipolar head disassembled and placed in a Betadine soak for anticipated reimplantation. Next, the fracture was inspected. There was found to be some comminution right at the level of the calcar, some smaller comminuted fragments had to be removed. The major fracture fragment, however could be both visualized and palpated. Fracture hematoma was debrided using combination of rongeur and curette. Once the edges of the fracture could be well visualized and felt, the fracture was reduced, held in place provisionally with bone tenaculums. Next, a total of three 1.7 mm cables were passed around the fracture and provisionally held in place with the appropriate jig clamped. Once done, the canal was further prepared using broaches, however, carrying up to a size 5 broach. Next, the canal was thoroughly irrigated with 5 L of normal saline using Pulsavac. A cement restrictor was then passed down the canal. Next, cement was mixed. This was used to fill the femoral canal. Once it had set up adequately, the size 5 stem was passed down the canal and held in place until the cement fully cured. Excess cement was removed proximally. Once fully cured, the bipolar head was reassembled and attached to the stem and then reduced. This restored leg lengths and provided quite good stability at the hip. The wound again irrigated with Pulsavac and then closed in layers. The capsule was reapproximated with #2 Vicryl as were the short external rotators. #2 Vicryl also used for the tensor fascia and fascia jocelyn. Jez's fascia was closed with 0 Vicryl followed by 2-0 Vicryl subcutaneously and chey again for the skin. Xeroform gauze, tape dressing was applied to the thigh and the patient was transferred to recovery room in stable condition. There were no complications. The patient tolerated the procedure well. Job ID: [id number]
--- NOTE | 2018-09-06 14:04 | PRG ---
DATE OF SERVICE: 09/06/2018 SUBJECTIVE: The patient was seen this morning, sitting up in chair next to bed after working with physical therapy. The patient reports pain is well controlled. She is tolerating a regular diet. She had no acute overnight events. She denies nausea, vomiting, or diarrhea. We are holding some of her home medications at this time. OBJECTIVE: VITAL SIGNS: Temperature 97.9, pulse 78, respirations 16, oxygen saturation 93% on room air, and blood pressure 120/66. GENERAL: A well-appearing elderly female, sitting up in bed with no signs of acute distress. PULMONARY: Equal chest rise and fall. Clear breath sounds bilaterally. No signs of acute pulmonary distress. CARDIAC: Regular rate and rhythm. No murmurs, gallops, or rubs. GI: Abdomen is soft, nontender, nondistended. EXTREMITIES: Gross motor and sensation intact in all extremities. 2+ pulses in all extremities. No significant swelling noted. LABORATORY FINDINGS: White count 10.0, hemoglobin 8.5, hematocrit 26.2, platelets 292. Sodium 140, potassium 4.8, chloride 110, carbon dioxide 24, BUN 26, creatinine 1.12, phosphorus 4.1, magnesium 1.9. DIAGNOSTIC FINDINGS: There are no new diagnostic findings to report. ASSESSMENT: 1. Left hip hardware failure, status post fixation. 2. Acute kidney injury, improving. 3. Acute blood loss anemia, improved after 2 units packed red blood cells yesterday before the OR. 4. History of hypertension and cardiac valvular disease. PLAN: The patient to work with Physical and Occupational Therapy. We are currently holding her diuretic antihypertensive medications, but she is restarted on carvedilol and ramipril at this time. We will start aspirin for DVT prophylaxis. She is pending placement in acute rehab facility. The patient was seen and examined by Dr. Lee and myself this morning during rounds. Job ID: [id number]
[2018-09-06] MEDS: Famotidine 20 MG TAB PO SCH (20:59)
[2018-09-07] MEDS: Acetaminophen 500 MG TAB PO SCH ×2 (02:36→09:53)
[2018-09-07] MEDS: traMADol HCl 50 MG TAB PO SCH ×2 (02:37→10:05)
[2018-09-07] MEDS: Polyethylene Glycol 3350 17 GM Packet PO SCH (09:44)
[2018-09-07] MEDS: Ramipril 5 MG CAP PO SCH (09:45)
[2018-09-07] MEDS: Aspirin 81 mg Enteric Coated Tablet PO SCH (09:45)
[2018-09-07] MEDS: Carvedilol 3.125 MG TAB PO SCH (09:45)
[2018-09-07] MEDS: Ferrous Sulfate 325 MG TAB PO SCH (09:46)
[2018-09-07] MEDS: Senokot S 8.6-50 MG TAB PO SCH (09:46)
[2018-09-07 11:22] VITALS: BP 134/72; TEMP 98.4
[2018-09-07] MEDS ORDERED: Ascorbic Acid 500 mg Chewable Tablet PO SCH (16:30)
--- NOTE | 2018-09-08 04:11 | DIS ---
DATE OF ADMISSION: 09/04/2018 DATE OF DISCHARGE: 09/07/2018 ADMISSION DIAGNOSES: 1. Readmission status post left hip hardware failure. 2. Acute blood loss anemia. 3. History of hypertension and valvular disease. DISCHARGE DIAGNOSES: 1. Readmission status post left hip hardware failure. 2. Acute blood loss anemia. 3. History of hypertension and valvular disease. CONSULTING PHYSICIAN: Dr. Garza, Orthopedic Surgery. PROCEDURES: Revision of the left hip hemiarthroplasty on September 05, 2018. HOSPITAL COURSE: Ms. Holt is an 78-year-old female who was recently discharged from the trauma service for a left hip femoral neck fracture and had gone to the OR, Dr. Garza. The patient was adamant about being discharged home and refused to be placed in a rehab or alf facility. While she was at home, she reported that she felt a popping of her left hip with increasing pain. Subsequently, she came to the emergency department and was evaluated that she had left hip hardware failure. She was admitted to the hospital and Dr. Garza with Orthopedic Surgery was consulted. She went to the OR on September 05 and received a revision of the left hip arthroplasty by Dr. Garza. She did also receive 2 units of packed red blood cells before the OR on the . Postoperatively, the patient's pain was well controlled. She was tolerating a regular diet. She was working with Physical and Occupational Therapy. She was voiding without any issues. She did agree to go to rehab and she is discharged to acute rehab. DISCHARGE DISPOSITION: Acute rehab. DISCHARGE CONDITION: Satisfactory. PHYSICAL EXAMINATION: VITAL SIGNS: Temperature 98.4, pulse 92, respirations 20, oxygen saturation 94% on room air, blood pressure 134/72. GENERAL: Well-appearing, elderly female, sitting up in bed with no signs of acute distress. PULMONARY: Equal chest rise and fall. Clear breath sounds bilaterally. No signs of acute pulmonary distress. CARDIAC: Regular rate and rhythm. No murmurs, gallops, or rubs. GASTROINTESTINAL: Abdomen is soft, nontender, nondistended. EXTREMITIES: Gross motor and sensation intact in all extremities. 2+ pulses in all extremities. No significant swelling noted. DISCHARGE INSTRUCTIONS: The patient will be discharged to acute rehab. Activity as tolerated with toe-touch weightbearing to the left lower extremity. She is on a regular diet. She is to receive physical and occupational therapy and use a walker. DISCHARGE MEDICATIONS: Include, 1. Tylenol. 2. Vitamin C. 3. Aspirin. 4. Carvedilol. 5. Ferrous sulfate. 6. Lactulose. 7. MiraLAX. 8. Ramipril. 9. Senokot. 10. Tramadol. 11. Pepcid. 12. Lasix. FOLLOWUP APPOINTMENTS: The patient is to call Dr. Garza' office to set up followup appointment. This is merely a summary of the patient's hospitalization. For full details, please see her medical chart in its entirety. Job ID: [id number]
== END 2018-09-07 14:08 | DRG 467 ==
LOC: ERS 16:18 → SURG B 17:49
PROVIDERS: ADMIT Specialist; ATTEND Specialist
PROC: 0SRS0J9 Replacement of Left Hip Joint, Femoral Surface with Synthetic Substitute, Cemented, Open Approach (ICD-10-PCS; principal; 2018-09-05)
PROC: 0SPS0JZ Removal of Synthetic Substitute from Left Hip Joint, Femoral Surface, Open Approach (ICD-10-PCS; 2018-09-05)
PROC: 30233N1 Transfusion of Nonautologous Red Blood Cells into Peripheral Vein, Percutaneous Approach (ICD-10-PCS; 2018-09-05)
DX: M97.02XA Periprosthetic fracture around internal prosthetic left hip joint, initial encounter (principal); N17.9 Acute kidney failure, unspecified; D62 Acute posthemorrhagic anemia; I12.9 Hypertensive chronic kidney disease with stage 1 through stage 4 chronic kidney disease, or unspecified chronic kidney disease; N18.9 Chronic kidney disease, unspecified; Z96.642 Presence of left artificial hip joint; Z88.2 Allergy status to sulfonamides; Z90.710 Acquired absence of both cervix and uterus; Z90.89 Acquired absence of other organs
CPT/HCPCS: 36415; 36430; 80048; 80053; 83735; 84100; 85025; 85610; 85730; 86850; 86900; 86901; 96374; 96375; C1713; G0390; J1100; J2001; J2270; J2405; J2704; J3010; J3490; P9016

== ENCOUNTER 2018-12-21 11:13 | Emergency (ER) | payer MEDICARE, BC ==
[2018-12-21 13:25] LABS: #Basophils 0.1 thou/uL (0.0-0.2); #Eosinphils 0.2 thou/uL (0.0-0.7); #Lymphocytes 1.2 thou/uL (1.20-3.40); #Monocytes 0.8 thou/uL (0.11-0.59); #Neutrophils 6.5 thou/uL (1.40-6.50); %Basophils 0.6 % (0.0-1.0); %Lymphocytes 13.5 % (21.0-51.0); %Monocytes 9.1 % (0.0-10.0); %Neutrophils 74.9 % (42.0-75.0); Hemoglobin 12.4 g/dL (12.0-16.0); Mean Corpuscular HGB CONC 32.3 g/dL (32.0-36.0); Mean Corpuscular Hemoglobin 31.1 pg (27.0-31.0); Mean Corpuscular Volume 96.2 fL (78.0-98.0); Mean Platelet Volume 7.2 fL (7.4-10.4); Platelet Count 269 thou/uL (130-400); RBC Distribution Width 12.4 % (11.5-14.5); Red Blood Cell (RBC) Count 3.97 mill/uL (4.20-5.40); White Blood Cell (WBC) Count 8.6 thou/uL (4.8-10.8)
[2018-12-21 13:32] LABS: Bilirubin Negative (Negative); Blood, Urine Negative (Negative); Clarity Clear (Clear); Glucose, Urine (Dipstick) Normal (Negative); Leukocyte Negative Leu/uL (Negative); Nitrite Negative (Negative); Protein, Urine (Dipstick) Negative (Neg-Trace); Urobilinogen Normal mg/dL (Less than 2)
--- NOTE | 2018-12-21 13:39 | RAD ---
LEFT HIP 2 VIEWS: HISTORY: Left hip pain FINDINGS: Postop changes of left hip prostheses are seen in good position and alignment. No acute fracture or d islocation is identified.
[2018-12-21 13:40] LABS: ALT (SGPT) Less than 7 U/L (8-55); AST (SGOT) 13 U/L (5-34); Albumin 4.4 g/dL (3.4-4.8); Alkaline Phosphatase 134 U/L (40-150); Anion Gap 14 mmol/L (10-20); BUN (Urea Nitrogen) 40 mg/dL (9.8-20.1); Bilirubin, Total 0.7 mg/dL (0.2-1.2); Calc. Creatinine Clearance 0 mL/min (70-130); Calcium 9.6 mg/dL (7.8-10.44); Carbon Dioxide 25 mmol/L (23-31); Chloride 103 mmol/L (98-107); Estimated GFR-MDRD 34; Globulin 2.7 g/dL (2.4-3.5); Glucose 91 mg/dL (83-110); Lipase 41 U/L (8-78); Potassium 4.5 mmol/L (3.5-5.1); Protein, Total 7.1 g/dL (6.0-8.3); Sodium 137 mmol/L (136-145)
--- NOTE | 2018-12-21 15:44 | CT ---
EXAM: CT Pelvis without contrast HISTORY: Pain COMPARISON: Radiograph same day FINDINGS: Moderate diverticular disease of sigmoid colon. No free fluid within the pelvis. Small fat-containi ng umbilical hernia. No dilated loops of bowel. No pelvic sidewall hematoma. Continued satisfactory appearance of the left hip arthroplasty. Old right superior and inferior pubic rami fractures which have healed. The bones are demineralized. There is sclerosis throughout the sacrum indicating insufficiency fractures. Some S3, S4, and S5 t hrough zone 1 and zone 2. No acute displaced pelvic fracture is appreciated. Asymmetric atrophy of the semimembranosus muscles right. IMPRESSION: 1. No acute displaced fracture of the pelvis. 2. Abnormal sclerosis throughout S3, S4, and S5 through zone 1 and zone 2 indicating insufficiency f ractures. Bones are extensively demineralized. 3. Intact left hip arthroplasty without adjacent fluid collection. POS: HOME
== END 2018-12-21 15:25 | disposition home or self-care (01) ==
LOC: ERS 11:13
DX: M25.552 Pain in left hip (principal); M54.9 Dorsalgia, unspecified; I10 Essential (primary) hypertension; Z79.899 Other long term (current) drug therapy; Z79.891 Long term (current) use of opiate analgesic; X58.XXXA Exposure to other specified factors, initial encounter
CPT/HCPCS: 36415; 72192; 80053; 81003; 83690; 85025; 87086

== ENCOUNTER 2022-10-19 21:44 | Observation (INO) | payer MEDICARE ==
[2022-10-19 22:26] LABS: #Basophils 0.1 thou/uL (0.0-0.2); #Eosinphils 0.2 thou/uL (0.0-0.7); #Monocytes 1.1 thou/uL (0.11-0.59); #Neutrophils 4.9 thou/uL (1.40-6.50); %Basophils 0.7 % (0.0-1.0); %Eosinophils 2.1 % (0.0-10.0); %Lymphocytes 27.5 % (21.0-51.0); %Monocytes 12.3 % (0.0-10.0); %Neutrophils 56.9 % (42.0-75.0); Hemoglobin 11.4 g/dL (12.0-16.0); Mean Corpuscular HGB CONC 32.9 g/dL (32.0-36.0); Mean Corpuscular Hemoglobin 31.1 pg (27.0-31.0); Mean Corpuscular Volume 94.8 fl (78.0-98.0); Mean Platelet Volume 9.5 fL (7.4-10.4); Platelet Count 270 10x3/uL (130-400); RBC Distribution Width 13.4 % (11.5-14.5); Red Blood Cell (RBC) Count 3.66 mill/uL (4.20-5.40); White Blood Cell (WBC) Count 8.6 10x3/uL (4.8-10.8)
[2022-10-19 22:49] LABS: ALT (SGPT) 10 U/L (8-55); AST (SGOT) 16 U/L (5-34); Albumin 4.3 g/dL (3.4-4.8); Alkaline Phosphatase 73 U/L (40-110); Anion Gap 16 mmol/L (10-20); BUN (Urea Nitrogen) 44 mg/dL (9.8-20.1); Calc. Creatinine Clearance 0 mL/min (70-130); Carbon Dioxide 25 mmol/L (23-31); Chloride 105 mmol/L (98-107); Estimated GFR 29; Globulin 2.6 g/dL (2.4-3.5); Glucose 96 mg/dL (83-110); Magnesium 2.4 mg/dL (1.6-2.6); Potassium 3.5 mmol/L (3.5-5.1); Protein, Total 6.9 g/dL (5.8-8.1); Sodium 142 mmol/L (136-145)
[2022-10-19 23:38] LABS: Bilirubin Negative (Negative); Blood, Urine Negative (Negative); Clarity Clear (Clear); Glucose, Urine (Dipstick) Normal (Negative); Ketone, Urine Negative (Negative); Leukocyte Negative Leu/uL (Negative); Nitrite Negative (Negative); Protein, Urine (Dipstick) Negative (Neg-Trace); Specific Gravity, Urine 1.015 (1.002-1.036); Urobilinogen Normal mg/dL (Less than 2)
[2022-10-20] MEDS ORDERED: Acetaminophen 325 MG TAB PO PRN (00:28)
[2022-10-20] MEDS ORDERED: Ondansetron ODT 4 MG TAB PO PRN (00:28)
[2022-10-20 01:44] VITALS: BMI 24.0
[2022-10-20 04:30] LABS: #Basophils 0.1 thou/uL (0.0-0.2); #Eosinphils 0.2 thou/uL (0.0-0.7); #Neutrophils 5.5 thou/uL (1.40-6.50); %Basophils 0.7 % (0.0-1.0); %Lymphocytes 22.8 % (21.0-51.0); %Monocytes 11.5 % (0.0-10.0); %Neutrophils 62.5 % (42.0-75.0); Hemoglobin 10.4 g/dL (12.0-16.0); Mean Corpuscular Volume 96.7 fl (78.0-98.0); Mean Platelet Volume 9.7 fL (7.4-10.4); Platelet Count 238 10x3/uL (130-400); RBC Distribution Width 13.3 % (11.5-14.5); Red Blood Cell (RBC) Count 3.36 mill/uL (4.20-5.40); White Blood Cell (WBC) Count 8.8 10x3/uL (4.8-10.8)
[2022-10-20 05:03] LABS: ALT (SGPT) 8 U/L (8-55); AST (SGOT) 12 U/L (5-34); Albumin 3.5 g/dL (3.4-4.8); Alkaline Phosphatase 59 U/L (40-110); Anion Gap 12 mmol/L (10-20); BUN (Urea Nitrogen) 39 mg/dL (9.8-20.1); Bilirubin, Total 0.9 mg/dL (0.2-1.2); Calc. Creatinine Clearance 26 mL/min (70-130); Calcium 8.5 mg/dL (7.8-10.44); Carbon Dioxide 25 mmol/L (23-31); Chloride 109 mmol/L (98-107); Estimated GFR 37; Globulin 2.1 g/dL (2.4-3.5); Glucose 88 mg/dL (83-110); Potassium 3.5 mmol/L (3.5-5.1); Protein, Total 5.6 g/dL (5.8-8.1); Sodium 142 mmol/L (136-145)
[2022-10-20 08:11] VITALS: BP 138/68; TEMP 97.4
[2022-10-20] MEDS ORDERED: Furosemide 40 MG TAB PO SCH (09:00)
[2022-10-20] MEDS ORDERED: Aspirin 81 mg Enteric Coated Tablet PO SCH (09:00)
[2022-10-20] MEDS ORDERED: Lisinopril 20 MG TAB PO SCH (09:00)
[2022-10-20] MEDS ORDERED: Amlodipine 5 MG TAB PO SCH (09:00)
== END 2022-10-20 10:05 ==
LOC: ERS 21:44 → 2NO 23:34
PROVIDERS: ADMIT Student in an Organized Health Care Education/Training Program; ATTEND Student in an Organized Health Care Education/Training Program
DX: R00.1 Bradycardia, unspecified (principal); R41.82 Altered mental status, unspecified; K21.9 Gastro-esophageal reflux disease without esophagitis; A52.16 Charcot's arthropathy (tabetic); I12.9 Hypertensive chronic kidney disease with stage 1 through stage 4 chronic kidney disease, or unspecified chronic kidney disease; N18.30 Chronic kidney disease, stage 3 unspecified; D63.1 Anemia in chronic kidney disease; K44.9 Diaphragmatic hernia without obstruction or gangrene; E78.5 Hyperlipidemia, unspecified; Z79.82 Long term (current) use of aspirin; Z79.899 Other long term (current) drug therapy; Z88.2 Allergy status to sulfonamides
CPT/HCPCS: 71045; 80053 ×2; 81003; 82962; 83735; 85025 ×2; 93005; 96372; 99285; G0378; 36415; 36416; J1650

== ENCOUNTER 2023-08-03 09:34 | Outpatient (CLI) | payer MEDICARE | END 2023-08-03 09:35 | disposition home or self-care (01) | LOC: ULT 09:34 | PROVIDERS: ATTEND Student in an Organized Health Care Education/Training Program | DX: E04.2 Nontoxic multinodular goiter (principal) | CPT/HCPCS: 76536 ==

== ENCOUNTER 2023-10-17 15:05 | Emergency (ER) | payer MEDICARE ==
[2023-10-17 16:40] LABS: #Basophils 0.05 10x3/uL (0.0-0.2); %Basophils 0.7 % (0.0-1.0); %Eosinophils 1.3 % (0.0-10.0); %Lymphocytes 20.6 % (21.0-51.0); %Monocytes 8.9 % (0.0-10.0); %Neutrophils 68.4 % (42.0-75.0); Hematocrit 35.9 % (36.0-47.0); Hemoglobin 11.9 g/dL (12.0-16.0); Mean Corpuscular HGB CONC 33.1 g/dL (32.0-36.0); Mean Corpuscular Hemoglobin 32.2 pg (27.0-31.0); Mean Platelet Volume 9.9 fL (7.4-10.4); Platelet Count 278 10x3/uL (130-400); RBC Distribution Width 13.2 % (11.5-14.5)
[2023-10-17 17:00] LABS: ALT (SGPT) 9 U/L (8-55); AST (SGOT) 15 U/L (5-34); Alkaline Phosphatase 82 U/L (40-110); Anion Gap 18 mmol/L (10-20); BUN (Urea Nitrogen) 40 mg/dL (9.8-20.1); Calc. Creatinine Clearance 0 mL/min (70-130); Calcium 9.3 mg/dL (7.8-10.44); Carbon Dioxide 21 mmol/L (23-31); Chloride 109 mmol/L (98-107); Estimated GFR 21; Globulin 2.8 g/dL (2.4-3.5); Glucose 82 mg/dL (83-110); Potassium 4.5 mmol/L (3.5-5.1); Protein, Total 6.8 g/dL (5.8-8.1); Sodium 143 mmol/L (136-145)
[2023-10-17 17:59] LABS: Bilirubin Negative (Negative); Blood, Urine Negative (Negative); Glucose, Urine (Dipstick) Negative (Negative); Ketone, Urine Trace mg/dL (Negative); Leukocyte Negative (Negative); Nitrite Negative (Negative); Protein, Urine (Dipstick) Negative (Neg-Trace); Urobilinogen 0.2 mg/dL (Less than 2)
[2023-10-17 17:59] LABS: Troponin I 0.017 ng/mL (< 0.028)
[2023-10-17 18:04] LABS: Bacteria/HPF None Seen HPF (None Seen); CAUTI Indications for Culture Alt mental st,lethar; RBC/HPF 0-3 HPF (0-3); Squamous Epithelial 0-3 HPF (0-3); WBC/HPF 0-3 HPF (0-3)
[2023-10-17 18:05] LABS: Clarity Clear (Clear)
[2023-10-17 18:06] LABS: Urine Culture Reflex No No
== END 2023-10-17 18:30 ==
LOC: ERS 15:05
DX: R41.82 Altered mental status, unspecified (principal); R10.30 Lower abdominal pain, unspecified; I12.9 Hypertensive chronic kidney disease with stage 1 through stage 4 chronic kidney disease, or unspecified chronic kidney disease; N18.9 Chronic kidney disease, unspecified; Z79.82 Long term (current) use of aspirin; Z79.899 Other long term (current) drug therapy
CPT/HCPCS: 36415; 70450; 71045; 74176; 80053; 81001; 83880; 84484; 85025; 93005

== ENCOUNTER 2023-11-08 12:42 | Outpatient (CLI) | payer MEDICARE | END 2023-11-08 12:43 | disposition home or self-care (01) | LOC: ULT 12:42 | PROVIDERS: ATTEND Student in an Organized Health Care Education/Training Program | DX: E04.2 Nontoxic multinodular goiter (principal) | CPT/HCPCS: 76536 ==

== ENCOUNTER 2023-12-04 20:06 | Inpatient (IN) | payer MEDICARE ==
[2023-12-04 21:51] LABS: #Basophils 0.05 10x3/uL (0.0-0.2); #Eosinphils Less than 0.03 10x3/uL (0.0-0.7); %Basophils 0.5 % (0.0-1.0); %Eosinophils 0.2 % (0.0-10.0); %Lymphocytes 6.9 % (21.0-51.0); %Monocytes 9.6 % (0.0-10.0); %Neutrophils 82.4 % (42.0-75.0); Hematocrit 34.4 % (36.0-47.0); Hemoglobin 10.9 g/dL (12.0-16.0); Mean Corpuscular HGB CONC 31.7 g/dL (32.0-36.0); Mean Corpuscular Volume 100.9 fL (78.0-98.0); Mean Platelet Volume 9.5 fL (7.4-10.4); Platelet Count 276 10x3/uL (130-400); RBC Distribution Width 13.3 % (11.5-14.5); Red Blood Cell (RBC) Count 3.41 mill/uL (4.20-5.40)
[2023-12-04 22:42] LABS: Bacteria/HPF None Seen HPF (None Seen); Bilirubin Negative (Negative); Blood, Urine Negative (Negative); CAUTI Indications for Culture Alt mental st,lethar; Clarity Clear (Clear); Glucose, Urine (Dipstick) Normal (Negative); Ketone, Urine Negative (Negative); Leukocyte Negative Leu/uL (Negative); Nitrite Negative (Negative); Protein, Urine (Dipstick) Negative (Neg-Trace); RBC/HPF 0-3 HPF (0-3); Specific Gravity, Urine 1.011 (1.002-1.036); Squamous Epithelial 0-3 HPF (0-3); Urobilinogen Normal mg/dL (Less than 2); WBC/HPF 0-3 HPF (0-3)
[2023-12-04 22:43] LABS: Urine Culture Reflex No No
[2023-12-04 23:25] LABS: ALT (SGPT) 11 U/L (8-55); AST (SGOT) 19 U/L (5-34); Albumin 3.9 g/dL (3.4-4.8); Alkaline Phosphatase 92 U/L (40-110); Anion Gap 18 mmol/L (10-20); BUN (Urea Nitrogen) 60 mg/dL (9.8-20.1); Bilirubin, Total 1.5 mg/dL (0.2-1.2); Calc. Creatinine Clearance 0 mL/min (70-130); Carbon Dioxide 19 mmol/L (23-31); Chloride 109 mmol/L (98-107); Estimated GFR 13; Globulin 2.8 g/dL (2.4-3.5); Glucose 87 mg/dL (83-110); Protein, Total 6.7 g/dL (5.8-8.1); Sodium 141 mmol/L (136-145)
[2023-12-05 04:14] VITALS: BMI 22.8
[2023-12-05] MEDS: Lactated Ringer's 1,000 ML IV SCH ×2 (04:41→15:30)
[2023-12-05 06:13] LABS: #Basophils 0.03 10x3/uL (0.0-0.2); %Basophils 0.3 % (0.0-1.0); %Eosinophils 0.9 % (0.0-10.0); %Lymphocytes 10.8 % (21.0-51.0); %Monocytes 14.1 % (0.0-10.0); %Neutrophils 73.6 % (42.0-75.0); Hemoglobin 10.5 g/dL (12.0-16.0); Mean Corpuscular HGB CONC 31.8 g/dL (32.0-36.0); Mean Corpuscular Hemoglobin 31.7 pg (27.0-31.0); Mean Corpuscular Volume 99.7 fL (78.0-98.0); Mean Platelet Volume 9.9 fL (7.4-10.4); Platelet Count 261 10x3/uL (130-400); RBC Distribution Width 13.4 % (11.5-14.5); Red Blood Cell (RBC) Count 3.31 mill/uL (4.20-5.40)
[2023-12-05 06:54] LABS: Anion Gap 19 mmol/L (10-20); BUN (Urea Nitrogen) 58 mg/dL (9.8-20.1); Calc. Creatinine Clearance 12 mL/min (70-130); Calcium 8.6 mg/dL (7.8-10.44); Carbon Dioxide 20 mmol/L (23-31); Chloride 109 mmol/L (98-107); Estimated GFR 15; Glucose 80 mg/dL (83-110); Potassium 4.6 mmol/L (3.5-5.1); Sodium 143 mmol/L (136-145)
[2023-12-05] MEDS: Amlodipine 5 MG TAB PO SCH (08:10)
[2023-12-05] MEDS: Aspirin Chewable 81 MG TAB PO SCH (08:10)
[2023-12-05] MEDS: Enoxaparin 30 MG (0.3 mL) SYRINGE SC SCH (08:10)
[2023-12-05 11:18] VITALS: BMI 22.8
[2023-12-05] MEDS: Donepezil HCl 10 MG TAB PO SCH (21:17)
[2023-12-05] MEDS: Latanoprost 0.005% Ophth Soln 2.5 ml Bottle R EYE SCH (21:17)
[2023-12-06 06:00] LABS: Anion Gap 15 mmol/L (10-20); BUN (Urea Nitrogen) 47 mg/dL (9.8-20.1); Calc. Creatinine Clearance 16 mL/min (70-130); Calcium 8.1 mg/dL (7.8-10.44); Carbon Dioxide 19 mmol/L (23-31); Chloride 113 mmol/L (98-107); Estimated GFR 21; Glucose 82 mg/dL (83-110); Potassium 4.6 mmol/L (3.5-5.1); Sodium 142 mmol/L (136-145)
[2023-12-07 06:32] LABS: Anion Gap 12 mmol/L (10-20); BUN (Urea Nitrogen) 38 mg/dL (9.8-20.1); Calc. Creatinine Clearance 21 mL/min (70-130); Calcium 8.6 mg/dL (7.8-10.44); Carbon Dioxide 20 mmol/L (23-31); Chloride 112 mmol/L (98-107); Estimated GFR 30; Glucose 95 mg/dL (83-110); Potassium 4.3 mmol/L (3.5-5.1); Sodium 140 mmol/L (136-145)
[2023-12-07] MEDS ORDERED: Ondansetron ODT 4 MG TAB PO PRN (08:17)
[2023-12-07 14:10] LABS: Bacteria/HPF 4+ HPF (None Seen); Bilirubin Negative (Negative); Blood, Urine Negative (Negative); CAUTI Indications for Culture Alt mental st,lethar; Clarity Clear (Clear); Glucose, Urine (Dipstick) Normal (Negative); Ketone, Urine Trace mg/dL (Negative); Leukocyte 250 Leu/uL (Negative); Nitrite Negative (Negative); Protein, Urine (Dipstick) 10 mg/dL (Neg-Trace); RBC/HPF 0-3 HPF (0-3); Specific Gravity, Urine 1.013 (1.002-1.036); Squamous Epithelial 0-3 HPF (0-3); Urobilinogen Normal mg/dL (Less than 2)
[2023-12-07 14:12] LABS: Urine Culture Reflex No No
[2023-12-07] MEDS: cefTRIAXone\\ROCEPHIN 1 GM in Sodium Chloride 0.9% 100 ML IVPB SCH (15:50)
[2023-12-07] MEDS ORDERED: Diclofenac 1% 50 GM TOPICAL GEL TP PRN (22:59)
[2023-12-07] MEDS: QUEtiapine 25 MG TAB PO SCH (23:47)
[2023-12-08] MEDS ORDERED: Diclofenac 1% 50 GM TOPICAL GEL TP SCH (09:00)
[2023-12-08 10:51] LABS: Anion Gap 14 mmol/L (10-20); BUN (Urea Nitrogen) 28 mg/dL (9.8-20.1); Calc. Creatinine Clearance 23 mL/min (70-130); Calcium 8.7 mg/dL (7.8-10.44); Carbon Dioxide 18 mmol/L (23-31); Chloride 116 mmol/L (98-107); Estimated GFR 33; Glucose 114 mg/dL (83-110); Potassium 4.6 mmol/L (3.5-5.1); Sodium 143 mmol/L (136-145)
[2023-12-08] MEDS: QUEtiapine 25 MG TAB PO SCH (20:55)
[2023-12-08] MEDS ORDERED: QUEtiapine 25 MG TAB PO SCH (21:00)
[2023-12-09 05:36] LABS: Anion Gap 12 mmol/L (10-20); BUN (Urea Nitrogen) 25 mg/dL (9.8-20.1); Calc. Creatinine Clearance 26 mL/min (70-130); Calcium 8.5 mg/dL (7.8-10.44); Carbon Dioxide 17 mmol/L (23-31); Chloride 118 mmol/L (98-107); Estimated GFR 38; Glucose 77 mg/dL (83-110); Potassium 4.8 mmol/L (3.5-5.1); Sodium 142 mmol/L (136-145)
[2023-12-09 14:27] LABS: #Basophils 0.07 10x3/uL (0.0-0.2); %Basophils 0.6 % (0.0-1.0); %Eosinophils 2.7 % (0.0-10.0); %Monocytes 9.3 % (0.0-10.0); %Neutrophils 79.9 % (42.0-75.0); Hematocrit 37.8 % (36.0-47.0); Hemoglobin 11.5 g/dL (12.0-16.0); Mean Corpuscular HGB CONC 30.4 g/dL (32.0-36.0); Mean Corpuscular Hemoglobin 32.1 pg (27.0-31.0); Mean Corpuscular Volume 105.6 fL (78.0-98.0); Mean Platelet Volume 9.7 fL (7.4-10.4); Platelet Count 263 10x3/uL (130-400); Red Blood Cell (RBC) Count 3.58 mill/uL (4.20-5.40)
[2023-12-10 07:58] LABS: Anion Gap 11 mmol/L (10-20); BUN (Urea Nitrogen) 25 mg/dL (9.8-20.1); Calc. Creatinine Clearance 26 mL/min (70-130); Calcium 8.4 mg/dL (7.8-10.44); Carbon Dioxide 20 mmol/L (23-31); Chloride 115 mmol/L (98-107); Estimated GFR 39; Glucose 95 mg/dL (83-110); Potassium 4.6 mmol/L (3.5-5.1); Sodium 141 mmol/L (136-145)
[2023-12-10] MEDS ORDERED: Amlodipine 10 MG TAB PO SCH (10:30)
[2023-12-10] MEDS: Amlodipine 5 MG TAB PO SCH (10:49)
[2023-12-11] MEDS: Amlodipine 10 MG TAB PO SCH (08:02)
[2023-12-11 08:38] LABS: Anion Gap 12 mmol/L (10-20); BUN (Urea Nitrogen) 25 mg/dL (9.8-20.1); Calc. Creatinine Clearance 28 mL/min (70-130); Calcium 8.4 mg/dL (7.8-10.44); Carbon Dioxide 18 mmol/L (23-31); Chloride 113 mmol/L (98-107); Estimated GFR 41; Glucose 93 mg/dL (83-110); Potassium 4.7 mmol/L (3.5-5.1); Sodium 138 mmol/L (136-145)
[2023-12-11] MEDS: Lidocaine 4% Patch TD SCH (14:57)
[2023-12-12] MEDS: LIDOCAINE Patch Removal TOP SCH (01:56)
[2023-12-12 05:34] VITALS: TEMP 98.2
[2023-12-12 07:50] LABS: Anion Gap 12 mmol/L (10-20); BUN (Urea Nitrogen) 28 mg/dL (9.8-20.1); Calc. Creatinine Clearance 31 mL/min (70-130); Calcium 8.7 mg/dL (7.8-10.44); Carbon Dioxide 19 mmol/L (23-31); Chloride 111 mmol/L (98-107); Estimated GFR 47; Glucose 86 mg/dL (83-110); Potassium 4.3 mmol/L (3.5-5.1); Sodium 138 mmol/L (136-145)
[2023-12-12 08:36] VITALS: BP 129/71
[2023-12-16 07:28] LABS: Lidocaine Less than 1.0
== END 2023-12-12 14:35 | DRG 682 ==
LOC: ERS 20:06 → T4-B 12-05 02:04 → OBSVTOIN 12-06 12:46
PROVIDERS: ADMIT Family Medicine; ATTEND Family Medicine
DX: N17.9 Acute kidney failure, unspecified (principal); G93.41 Metabolic encephalopathy; A52.16 Charcot's arthropathy (tabetic); K21.9 Gastro-esophageal reflux disease without esophagitis; F03.90 Unspecified dementia, unspecified severity, without behavioral disturbance, psychotic disturbance, mood disturbance, and anxiety; N18.9 Chronic kidney disease, unspecified; I12.9 Hypertensive chronic kidney disease with stage 1 through stage 4 chronic kidney disease, or unspecified chronic kidney disease; E55.9 Vitamin D deficiency, unspecified; S00.83XA Contusion of other part of head, initial encounter; S80.02XA Contusion of left knee, initial encounter; D63.1 Anemia in chronic kidney disease; I34.0 Nonrheumatic mitral (valve) insufficiency; D50.9 Iron deficiency anemia, unspecified; S82.832D Other fracture of upper and lower end of left fibula, subsequent encounter for closed fracture with routine healing; Z88.2 Allergy status to sulfonamides; Z79.82 Long term (current) use of aspirin; Z79.899 Other long term (current) drug therapy
CPT/HCPCS: 36415; 36416; 51701; 70450; 80048; 80053; 80176; 81001; 82140; 83605; 84443; 85025; 87077; 87086; 93005; 96372; G0378; J0696; J1650; J3490; J7120

== ENCOUNTER 2025-02-25 06:05 | Emergency (ER) | payer MEDICARE ==
[2025-02-25] MEDS ORDERED: Bacitracin 1 PK ONE (07:10)
[2025-02-25 07:48] LABS: #Basophils 0.05 10x3/uL (0.0-0.2); #Eosinophils 0.03 10x3/uL (0.0-0.7); #Monocytes 1.02 10x3/uL (0.11-0.59); #Neutrophils 15.66 10x3/uL (1.40-6.50); %Basophils 0.3 % (0.0-1.0); %Eosinophils 0.2 % (0.0-10.0); %Lymphocytes 6.8 % (21.0-51.0); %Monocytes 5.6 % (0.0-10.0); %Neutrophils 86.7 % (42.0-75.0); Hematocrit 40.4 % (36.0-47.0); Hemoglobin 13.5 g/dL (12.0-16.0); Mean Corpuscular Hemoglobin 30.1 pg (27.0-31.0); Mean Corpuscular Volume 90.0 fL (78.0-98.0); Platelet Count 345 10x3/uL (130-400); Red Blood Cell (RBC) Count 4.49 mill/uL (4.20-5.40); White Blood Cell (WBC) Count 18.06 10x3/uL (4.8-10.8)
[2025-02-25 08:03] LABS: ALT (SGPT) 8 U/L (Less than 34); AST (SGOT) 27 U/L (11-34); Albumin 3.6 g/dL (3.1-4.5); Alkaline Phosphatase 109 U/L (40-110); Anion Gap 15 mmol/L (10-20); BUN (Urea Nitrogen) 27 mg/dL (9.8-20.1); Bilirubin, Total 0.9 mg/dL (0.3-1.2); CK (CPK) 109 U/L (29-168); Calc. Creatinine Clearance 0 mL/min (70-130); Calcium 9.0 mg/dL (7.8-10.44); Carbon Dioxide 24 mmol/L (23-31); Chloride 104 mmol/L (98-107); Globulin 3.2 g/dL (2.4-3.5); Glucose 97 mg/dL (83-110); Potassium 3.4 mmol/L (3.5-5.1); Sodium 140 mmol/L (136-145)
== END 2025-02-25 10:24 ==
LOC: ERS 06:05
DX: S09.90XA Unspecified injury of head, initial encounter (principal); S41.111A Laceration without foreign body of right upper arm, initial encounter; S41.112A Laceration without foreign body of left upper arm, initial encounter; I12.9 Hypertensive chronic kidney disease with stage 1 through stage 4 chronic kidney disease, or unspecified chronic kidney disease; N18.9 Chronic kidney disease, unspecified; W19.XXXA Unspecified fall, initial encounter
CPT/HCPCS: 70450; 71045; 72125; 72170; 80053; 82550; 85025; 93005